=== PATIENT | female | born 1980 ===

== ENCOUNTER 2018-09-30 19:13 | Observation (INO) ==
[2018-09-30] MEDS ORDERED: ACETAMINOPHEN 325 MG TABLET PO PRN (22:15)
[2018-09-30] MEDS ORDERED: DEXTROSE 50% 25 GM/50 ML SYRINGE IV PRN (22:15)
[2018-09-30] MEDS ORDERED: GLUCAGON 1 MG VIAL IM PRN ×2 (22:15)
[2018-09-30] MEDS ORDERED: DEXTROSE 50% 25 GM/50 ML VIAL IV PRN (22:15)
[2018-09-30] MEDS: GABAPENTIN 100 MG CAPSULE PO SCH (22:44)
[2018-09-30] MEDS: SIMVASTATIN 20 MG TABLET PO SCH (22:44)
[2018-09-30] MEDS: cloNIDine 0.1 MG TABLET PO SCH (22:45)
[2018-09-30] MEDS: INSULIN REGULAR 100 UNIT/ML SUBCUT SCH (23:42)
[2018-10-01 06:57] LABS: Calcium 8.7 MG/DL (8.5-10.1); Osmolality,Calculated 305.4 MOS/KG (273-304)
[2018-10-01 06:59] LABS: Potassium 6.3 MMOL/L (3.5-5.1)
[2018-10-01] MEDS: LOSARTAN 50 MG TABLET PO SCH (09:14)
[2018-10-01] MEDS: amLODIPine 10 MG TABLET PO SCH (09:14)
[2018-10-01] MEDS: cloNIDine 0.1 MG TABLET PO SCH ×2 (09:14→22:33)
[2018-10-01] MEDS: PANTOPRAZOLE 40 MG TABLET PO SCH (09:15)
[2018-10-01] MEDS: INSULIN LISPRO 100 UNIT/ML SUBCUT SCH ×2 (09:16→17:52)
[2018-10-01] MEDS: INSULIN REGULAR 100 UNIT/ML SUBCUT SCH ×4 (09:17→22:34)
[2018-10-01 13:40] LABS: Hepatitis A Ab IgM Quant 0.15 Index; Hepatitis A Ab IgM Result Negative (Negative); Hepatitis B Core IgM Quant 0.06 Index; Hepatitis B Core IgM Result Negative (Negative); Hepatitis B Surface Ag Quant < 0.10 Index; Hepatitis B Surface Ag Result Negative (Negative); Hepatitis C Virus Ab Quant < 0.02 Index; Hepatitis C Virus Ab Result Negative (Negative)
[2018-10-01] MEDS: GABAPENTIN 100 MG CAPSULE PO SCH (22:32)
[2018-10-01] MEDS: SIMVASTATIN 20 MG TABLET PO SCH (22:33)
[2018-10-02 06:09] LABS: Basophils % 0.5 % (0.0-0.8); Eosinophils # 0.2 10*3/uL (0.0-0.87); Eosinophils % 1.9 % (0.00-10.9); Hematocrit 31.2 VOL% (35.7-47.0); Hemoglobin 9.3 GM/DL (12.0-16.0); Immature Granulocytes % 0.6 %; Immature Granulocytes Absolute 0.05 #; Lymphocytes # 3.1 10*3/uL (1.4-4.0); Lymphocytes % 39.3 % (21.3-54.2); Mean Corpuscular HGB Conc 29.8 GM/DL (32-36); Mean Corpuscular Hemoglobin 31 PG (27-34); Mean Corpuscular Volume 104.3 FL (87-102); Mean Platelet Volume 10.4 FL (9.6-12.0); Monocytes # 0.7 10*3/uL (0.11-0.8); NRBC # 0.03 10*3/uL; Neutrophils # 3.9 10*3/uL (1.4-7.4); Neutrophils % 48.7 % (38.7-73.9); Platelet Count 236 T/CUMM (130-400); Red Blood Count 2.99 MC/CUMM (3.8-5.5); Red Cell Distribution Width 17.2 % (9.3-17.3)
[2018-10-02 06:50] LABS: Calcium 8.3 MG/DL (8.5-10.1); Potassium 5.5 MMOL/L (3.5-5.1)
[2018-10-02] MEDS: INSULIN LISPRO 100 UNIT/ML SUBCUT SCH (08:50)
[2018-10-02] MEDS: PANTOPRAZOLE 40 MG TABLET PO SCH (08:51)
[2018-10-02] MEDS: amLODIPine 10 MG TABLET PO SCH (08:51)
[2018-10-02] MEDS: LOSARTAN 50 MG TABLET PO SCH (08:51)
[2018-10-02] MEDS: cloNIDine 0.1 MG TABLET PO SCH (08:51)
[2018-10-02] MEDS: INSULIN REGULAR 100 UNIT/ML SUBCUT SCH ×2 (11:27→13:32)
[2018-10-02 16:01] VITALS: BP 97/53
== END 2018-10-02 18:21 | disposition home or self-care (01) ==
LOC: N.TELEN → SUATTDRO 21:14
PROVIDERS: ADMIT Internal Medicine; ATTEND Hospitalist

== ENCOUNTER 2019-11-12 22:14 | Observation (INO) ==
[2019-11-13] MEDS ORDERED: amLODIPine 10 MG TABLET PO ONE (00:07)
[2019-11-13] MEDS ORDERED: LOSARTAN 50 MG TABLET PO ONE (00:08)
[2019-11-13] MEDS ORDERED: cloNIDine 0.1 MG TABLET PO ONE (00:08)
[2019-11-13] MEDS ORDERED: INFLUENZA VIRUS VACCINE 0.5 ML SYRINGE IM ONE (00:10)
[2019-11-13] MEDS: LOSARTAN 50 MG TABLET PO SCH ×3 (00:45→20:12)
[2019-11-13] MEDS: cloNIDine 0.1 MG TABLET PO SCH ×2 (00:46→08:34)
[2019-11-13] MEDS ORDERED: cloNIDine 0.1 MG TABLET PO PRN (01:28)
[2019-11-13] MEDS ORDERED: DOCUSATE SODIUM 100 MG CAPSULE PO PRN (01:29)
[2019-11-13] MEDS ORDERED: ACETAMINOPHEN 325 MG TABLET PO PRN (01:29)
[2019-11-13 02:05] LABS: Basophils % 0.3 % (0.0-0.8); Eosinophils # 0.1 10*3/uL (0.0-0.87); Eosinophils % 2.2 % (0.00-10.9); Hematocrit 22.8 VOL% (35.7-47.0); Hemoglobin 7.1 GM/DL (12.0-16.0); Immature Granulocytes % 1.2 %; Immature Granulocytes Absolute 0.07 #; Lymphocytes % 34.1 % (21.3-54.2); Mean Corpuscular HGB Conc 31.1 GM/DL (32-36); Mean Corpuscular Volume 101.3 FL (87-102); Mean Platelet Volume 9.7 FL (9.6-12.0); Monocytes % 7.2 % (1.7-12.7); NRBC # 0.03 10*3/uL; Platelet Count 151 T/CUMM (130-400); Red Blood Count 2.25 MC/CUMM (3.8-5.5); Red Cell Distribution Width 14.5 % (9.3-17.3)
[2019-11-13 02:29] LABS: Albumin 3.3 G/DL (3.4-5.0); Bilirubin,Total 0.6 MG/DL (0.2-1.0); Calcium 8.5 MG/DL (8.5-10.1); Osmolality,Calculated 281.2 MOS/KG (273-304); Total Protein 6.6 G/DL (6.4-8.3)
[2019-11-13 02:35] LABS: Thyroid Stimulating Hormone 4.01 uIU/ml (0.358-3.74)
[2019-11-13] MEDS: amLODIPine 10 MG TABLET PO SCH (08:34)
[2019-11-13] MEDS ORDERED: ALUM/MAG/SIMETH/LIDO VISC 1:1 30 ML BOTTLE PO ONE (10:11)
[2019-11-13] MEDS: hydrALAZINE 20 MG/1 ML VIAL IV PRN ×3 (10:21→20:15)
[2019-11-13] MEDS ORDERED: SODIUM CHLORIDE 0.9% 1,000 ML IV PRN (12:09)
[2019-11-13 12:33] LABS: Basophils % 0.6 % (0.0-0.8); Eosinophils # 0.2 10*3/uL (0.0-0.87); Eosinophils % 2.3 % (0.00-10.9); Hematocrit 24.7 VOL% (35.7-47.0); Hemoglobin 7.6 GM/DL (12.0-16.0); Immature Granulocytes % 0.8 %; Immature Granulocytes Absolute 0.05 #; Lymphocytes # 1.6 10*3/uL (1.4-4.0); Mean Corpuscular HGB Conc 30.8 GM/DL (32-36); Mean Corpuscular Volume 101.6 FL (87-102); Mean Platelet Volume 10.3 FL (9.6-12.0); NRBC # 0.04 10*3/uL; Neutrophils % 65.3 % (38.7-73.9); Platelet Count 159 T/CUMM (130-400); Red Blood Count 2.43 MC/CUMM (3.8-5.5); Red Cell Distribution Width 14.4 % (9.3-17.3); White Blood Count 6.5 T/CUMM (4-12)
[2019-11-13] MEDS ORDERED: HYDROmorphone 2 MG/1 ML VIAL IV PRN (17:14)
[2019-11-13] MEDS: ONDANSETRON 4 MG/2 ML VIAL IV PRN ×2 (17:33→21:51)
[2019-11-13] MEDS: SIMVASTATIN 20 MG TABLET PO SCH (20:13)
[2019-11-13] MEDS ORDERED: GABAPENTIN 100 MG CAPSULE PO SCH (21:00)
[2019-11-13] MEDS ORDERED: LABETALOL 20 MG/4 ML SYRINGE IV ONE (21:36)
[2019-11-14 05:26] LABS: Basophils % 0.5 % (0.0-0.8); Eosinophils # 0.1 10*3/uL (0.0-0.87); Hematocrit 33.6 VOL% (35.7-47.0); Hemoglobin 10.2 GM/DL (12.0-16.0); Immature Granulocytes % 1.2 %; Immature Granulocytes Absolute 0.07 #; Lymphocytes # 1.4 10*3/uL (1.4-4.0); Lymphocytes % 22.7 % (21.3-54.2); Mean Corpuscular HGB Conc 30.4 GM/DL (32-36); Mean Corpuscular Volume 99.1 FL (87-102); Mean Platelet Volume 9.6 FL (9.6-12.0); Monocytes % 7.7 % (1.7-12.7); NRBC # 0.07 10*3/uL; Neutrophils % 66.9 % (38.7-73.9); Platelet Count 162 T/CUMM (130-400); Red Blood Count 3.39 MC/CUMM (3.8-5.5); Red Cell Distribution Width 16.6 % (9.3-17.3)
[2019-11-14 05:38] LABS: Osmolality,Calculated 273.1 MOS/KG (273-304)
[2019-11-14] MEDS: amLODIPine 10 MG TABLET PO SCH (08:29)
[2019-11-14] MEDS: LOSARTAN 50 MG TABLET PO SCH ×2 (08:29→20:27)
[2019-11-14] MEDS: SIMVASTATIN 20 MG TABLET PO SCH (20:26)
[2019-11-14] MEDS ORDERED: GABAPENTIN 100 MG CAPSULE PO SCH (21:00)
[2019-11-15 06:24] LABS: Basophils % 0.6 % (0.0-0.8); Eosinophils # 0.2 10*3/uL (0.0-0.87); Eosinophils % 2.4 % (0.00-10.9); Hematocrit 33.9 VOL% (35.7-47.0); Hemoglobin 10.6 GM/DL (12.0-16.0); Immature Granulocytes % 1.3 %; Immature Granulocytes Absolute 0.08 #; Lymphocytes # 1.9 10*3/uL (1.4-4.0); Lymphocytes % 30.3 % (21.3-54.2); Mean Corpuscular HGB Conc 31.3 GM/DL (32-36); Mean Corpuscular Volume 97.7 FL (87-102); Mean Platelet Volume 10.4 FL (9.6-12.0); Monocytes % 6.8 % (1.7-12.7); NRBC # 0.08 10*3/uL; Neutrophils % 58.6 % (38.7-73.9); Platelet Count 158 T/CUMM (130-400); Red Blood Count 3.47 MC/CUMM (3.8-5.5); White Blood Count 6.2 T/CUMM (4-12)
[2019-11-15] MEDS: LOSARTAN 50 MG TABLET PO SCH (08:29)
[2019-11-15 10:08] VITALS: BP 174/76
== END 2019-11-15 10:50 | disposition home or self-care (01) ==
LOC: SUATTDRO 23:48 → INTOOBSV 23:48 → N.CC 23:48
PROVIDERS: ADMIT Internal Medicine; ATTEND Internal Medicine

== ENCOUNTER 2021-05-20 08:52 | Inpatient (IN) ==
[2021-05-20] MEDS ORDERED: GLUCAGON 1 MG VIAL IM PRN (15:36)
[2021-05-20] MEDS ORDERED: DEXTROSE 50% 25 GM/50 ML VIAL IV PRN (15:36)
[2021-05-20] MEDS: oxyCODONE/ACETAMINOPHEN 5-325 MG TABLET PO PRN (19:43)
[2021-05-20] MEDS: ATORVASTATIN 40 MG TABLET PO SCH (21:24)
[2021-05-20] MEDS: GABAPENTIN 100 MG CAPSULE PO SCH (21:24)
[2021-05-20] MEDS: METOPROLOL TARTRATE 50 MG TABLET PO SCH (21:25)
[2021-05-20] MEDS: CHLORHEXIDINE 0.12% ORAL RINSE 60 ML BOTTLE SWISH/SPIT SCH (21:30)
[2021-05-21 04:19] LABS: ABG Base Excess 4.2 MMOL/L (-2.5-2.5); ABG HCO3 27.9 MMOL/L (20-26); ABG Oxygen Saturation 80.2 % (95-100); ABG PCO2 50.9 MM HG (35-48); ABG PH 7.379 (7.35-7.45); ABG TCO2 28.2 MMOL/L (23-27); Pt O2 Delivery Device Room Air
[2021-05-21 06:04] LABS: Basophils % 0.4 % (0.0-0.8); Eosinophils # 0.2 10*3/uL (0.0-0.87); Eosinophils % 2.2 % (0.00-10.9); Hematocrit 27.6 VOL% (35.7-47.0); Hemoglobin 8.4 GM/DL (12.0-16.0); Immature Granulocytes % 3.6 %; Immature Granulocytes Absolute 0.24 #; Lymphocytes % 29.7 % (21.3-54.2); Mean Corpuscular HGB Conc 30.4 GM/DL (32-36); Mean Corpuscular Volume 102.6 FL (87-102); Mean Platelet Volume 9.9 FL (9.6-12.0); Monocytes % 5.3 % (1.7-12.7); NRBC # 0.05 10*3/uL; Neutrophils % 58.8 % (38.7-73.9); Platelet Count 253 T/CUMM (130-400); Red Blood Count 2.69 MC/CUMM (3.8-5.5); Red Cell Distribution Width 15.3 % (9.3-17.3); White Blood Count 6.7 T/CUMM (4-12)
[2021-05-21 06:39] LABS: Eosinophils 1 % (0-10); Hypochromasia 1+; Lymphocytes 21 % (20-55); Microcytosis 1+; Platelet Estimate Adequate; Segmented Neutrophils 72 % (50-85); Total Cells Counted 100
[2021-05-21 06:44] LABS: Albumin 2.8 G/DL (3.4-5.0); Bilirubin,Total 0.7 MG/DL (0.20-1.00); Calcium 8.8 MG/DL (8.5-10.1); Osmolality,Calculated 276.7 MOS/KG (273-304); Potassium 4.4 MMOL/L (3.5-5.1)
[2021-05-21] MEDS: guaiFENesin 200 MG/10 ML UDCUP PO PRN ×3 (09:01→20:59)
[2021-05-21] MEDS: ASPIRIN EC 81 MG TABLET PO SCH (09:02)
[2021-05-21] MEDS: LOSARTAN 50 MG TABLET PO SCH (09:02)
[2021-05-21] MEDS: METOPROLOL TARTRATE 50 MG TABLET PO SCH ×2 (09:02→20:58)
[2021-05-21] MEDS: amLODIPine 10 MG TABLET PO SCH (09:02)
[2021-05-21] MEDS: CHLORHEXIDINE 0.12% ORAL RINSE 60 ML BOTTLE SWISH/SPIT SCH ×2 (09:06→21:00)
[2021-05-21] MEDS: CHLORHEXIDINE 4% SOLN 118 ML BOTTLE TOP SCH ×2 (14:25→21:06)
[2021-05-21] MEDS: ATORVASTATIN 40 MG TABLET PO SCH (20:57)
[2021-05-21] MEDS: GABAPENTIN 100 MG CAPSULE PO SCH (20:58)
[2021-05-22] MEDS: guaiFENesin 200 MG/10 ML UDCUP PO PRN (00:01)
[2021-05-22] MEDS: oxyCODONE/ACETAMINOPHEN 5-325 MG TABLET PO PRN ×2 (01:45→17:01)
[2021-05-22] MEDS ORDERED: fentaNYL 100 MCG/2 ML VIAL ONE (05:58)
[2021-05-22] MEDS ORDERED: propofoL 200 MG/20 ML VIAL IV ONE (05:58)
[2021-05-22] MEDS ORDERED: LIDOCAINE 2% 5 ML VIAL ONE (05:58)
[2021-05-22] MEDS ORDERED: MIDAZOLAM 2 MG/2 ML VIAL ONE (05:59)
[2021-05-22] MEDS ORDERED: DIAZEPAM 5 MG TABLET PO ONE (06:05)
[2021-05-22] MEDS ORDERED: FAMOTIDINE 20 MG TABLET PO ONE (06:05)
[2021-05-22] MEDS ORDERED: SODIUM CHLORIDE 0.9% 1,000 ML IV ONE (06:11)
[2021-05-22] MEDS ORDERED: HEPARIN/NACL 0.9% 2 UNITS/ML 1,000 UNIT/500 ML BAG IV ONE (06:15)
[2021-05-22] MEDS ORDERED: VANCOMYCIN INJ 1,000 MG in SODIUM CHLORIDE 0.9% 250 ML IV ONE (06:30)
[2021-05-22] MEDS ORDERED: ePHEDrine 50 MG/ML VIAL ONE (07:24)
[2021-05-22] MEDS: CHLORHEXIDINE 4% SOLN 118 ML BOTTLE TOP SCH (08:00)
[2021-05-22] MEDS ORDERED: GLYCOPYRROLATE 0.4 MG/2 ML VIAL ONE (08:55)
[2021-05-22] MEDS ORDERED: EPINEPHrine 1 MG/ML VIAL ONE (08:55)
[2021-05-22] MEDS ORDERED: NEOSTIGMINE 10 MG/10 ML VIAL ONE (08:56)
[2021-05-22] MEDS ORDERED: SODIUM CHLORIDE 0.9% 250 ML IV ONE (08:56)
[2021-05-22] MEDS ORDERED: DEXAMETHASONE 4 MG/1 ML VIAL ONE (08:57)
[2021-05-22] MEDS ORDERED: ONDANSETRON 4 MG/2 ML VIAL ONE ×2 (08:57→09:38)
[2021-05-22] MEDS ORDERED: SEVOFLURANE 1 UNIT/15 MINUTE INH ONE (09:04)
[2021-05-22] MEDS ORDERED: HYDROmorphone 2 MG/1 ML VIAL ONE (09:38)
[2021-05-22] MEDS: HYDROmorphone 2 MG/1 ML VIAL IV PRN ×3 (09:38→10:01)
[2021-05-22] MEDS ORDERED: ONDANSETRON 4 MG/2 ML VIAL IV PRN (09:57)
[2021-05-22] MEDS ORDERED: LABETALOL 20 MG/4 ML SYRINGE IV ONE (09:58)
[2021-05-22] MEDS ORDERED: GLUCAGON 1 MG VIAL IM PRN (10:03)
[2021-05-22] MEDS ORDERED: DEXTROSE 50% 25 GM/50 ML VIAL IV PRN (10:03)
[2021-05-22] MEDS: SODIUM CHLORIDE 0.9% 1,000 ML IV SCH ×2 (10:45→17:19)
[2021-05-22] MEDS: MORPHINE 2 MG/1 ML SYRINGE IV PRN ×2 (11:43→21:11)
[2021-05-22] MEDS ORDERED: ROCURONIUM 50 MG/5 ML VIAL IV ONE (11:51)
[2021-05-22] MEDS: LOSARTAN 50 MG TABLET PO SCH (12:33)
[2021-05-22] MEDS: ASPIRIN EC 81 MG TABLET PO SCH (12:33)
[2021-05-22] MEDS: METOPROLOL TARTRATE 50 MG TABLET PO SCH ×2 (12:34→21:11)
[2021-05-22] MEDS: amLODIPine 10 MG TABLET PO SCH (12:34)
[2021-05-22] MEDS: CHLORHEXIDINE 0.12% ORAL RINSE 60 ML BOTTLE SWISH/SPIT SCH (12:34)
[2021-05-22] MEDS: ATORVASTATIN 40 MG TABLET PO SCH (21:10)
[2021-05-22] MEDS: GABAPENTIN 100 MG CAPSULE PO SCH (21:11)
[2021-05-23] MEDS: oxyCODONE/ACETAMINOPHEN 5-325 MG TABLET PO PRN ×2 (01:41→12:11)
[2021-05-23] MEDS: CHLORHEXIDINE 0.12% ORAL RINSE 60 ML BOTTLE SWISH/SPIT SCH ×3 (01:46→21:22)
[2021-05-23 05:33] LABS: Basophils % 0.2 % (0.0-0.8); Immature Granulocytes % 4.6 %; Immature Granulocytes Absolute 0.54 #; Lymphocytes # 2.1 10*3/uL (1.4-4.0); Lymphocytes % 17.9 % (21.3-54.2); Mean Corpuscular HGB Conc 29.4 GM/DL (32-36); Mean Corpuscular Volume 105.8 FL (87-102); Mean Platelet Volume 10.2 FL (9.6-12.0); NRBC # 0.52 10*3/uL; Neutrophils % 70.3 % (38.7-73.9); Platelet Count 213 T/CUMM (130-400)
[2021-05-23 05:51] LABS: Red Blood Count 1.54 MC/CUMM (3.8-5.5); White Blood Count 11.8 T/CUMM (4-12)
[2021-05-23 05:52] LABS: Hematocrit 16.3 VOL% (35.7-47.0); Hemoglobin 4.8 GM/DL (12.0-16.0)
[2021-05-23 05:58] LABS: Albumin 2.2 G/DL (3.4-5.0); Bilirubin,Total 0.8 MG/DL (0.20-1.00); Calcium 7.8 MG/DL (8.5-10.1); Hypochromasia 1+; Lymphocytes 19 % (20-55); Nucleated Red Blood Cells 1 (0-5); Platelet Estimate Adequate; Segmented Neutrophils 78 % (50-85); Total Cells Counted 100; Total Protein 5.5 G/DL (6.4-8.2)
[2021-05-23 05:59] LABS: Microcytosis 1+
[2021-05-23 06:00] LABS: Potassium 6.7 MMOL/L (3.5-5.1)
[2021-05-23] MEDS ORDERED: SODIUM CHLORIDE 0.9% 1,000 ML IV PRN (06:34)
[2021-05-23] MEDS: MORPHINE 2 MG/1 ML SYRINGE IV PRN (07:20)
[2021-05-23] MEDS: ASPIRIN EC 81 MG TABLET PO SCH (10:01)
[2021-05-23] MEDS: LOSARTAN 50 MG TABLET PO SCH (11:46)
[2021-05-23 15:54] LABS: Basophils # 0.1 10*3/uL (0.0-0.2); Basophils % 0.6 % (0.0-0.8); Eosinophils # 0.1 10*3/uL (0.0-0.87); Eosinophils % 0.6 % (0.00-10.9); Hematocrit 29.1 VOL% (35.7-47.0); Hemoglobin 9.1 GM/DL (12.0-16.0); Immature Granulocytes % 2.8 %; Immature Granulocytes Absolute 0.23 #; Lymphocytes # 1.4 10*3/uL (1.4-4.0); Lymphocytes % 17.1 % (21.3-54.2); Mean Corpuscular HGB Conc 31.3 GM/DL (32-36); Mean Corpuscular Volume 99.7 FL (87-102); Mean Platelet Volume 10.4 FL (9.6-12.0); Monocytes % 6.7 % (1.7-12.7); NRBC # 0.62 10*3/uL; Neutrophils % 72.2 % (38.7-73.9); Platelet Count 188 T/CUMM (130-400); Red Blood Count 2.92 MC/CUMM (3.8-5.5); Red Cell Distribution Width 15.9 % (9.3-17.3); White Blood Count 8.2 T/CUMM (4-12)
[2021-05-23 16:36] LABS: Albumin 2.5 G/DL (3.4-5.0); Bilirubin,Total 1.4 MG/DL (0.20-1.00); Calcium 8.9 MG/DL (8.5-10.1); Potassium 3.8 MMOL/L (3.5-5.1); Total Protein 5.7 G/DL (6.4-8.2)
[2021-05-23] MEDS: VANCOMYCIN INJ 1,000 MG in SODIUM CHLORIDE 0.9% 250 ML IV SCH (19:05)
[2021-05-23] MEDS: GABAPENTIN 100 MG CAPSULE PO SCH (21:22)
[2021-05-24 04:30] LABS: Basophils # 0.1 10*3/uL (0.0-0.2); Basophils % 0.9 % (0.0-0.8); Eosinophils # 0.1 10*3/uL (0.0-0.87); Eosinophils % 0.8 % (0.00-10.9); Hemoglobin 9.6 GM/DL (12.0-16.0); Immature Granulocytes % 3.1 %; Immature Granulocytes Absolute 0.31 #; Lymphocytes # 1.9 10*3/uL (1.4-4.0); Lymphocytes % 19.1 % (21.3-54.2); Mean Corpuscular Volume 102.6 FL (87-102); Mean Platelet Volume 10.3 FL (9.6-12.0); Monocytes % 6.1 % (1.7-12.7); NRBC # 0.66 10*3/uL; Platelet Count 164 T/CUMM (130-400); Red Blood Count 3.02 MC/CUMM (3.8-5.5); Red Cell Distribution Width 17.4 % (9.3-17.3); White Blood Count 9.9 T/CUMM (4-12)
[2021-05-24 05:26] LABS: Albumin 2.2 G/DL (3.4-5.0); Bilirubin,Total 0.7 MG/DL (0.20-1.00); Calcium 9.4 MG/DL (8.5-10.1); Osmolality,Calculated 266.7 MOS/KG (273-304); Potassium 4.9 MMOL/L (3.5-5.1); Total Protein 5.9 G/DL (6.4-8.2)
[2021-05-24] MEDS: oxyCODONE/ACETAMINOPHEN 5-325 MG TABLET PO PRN (06:06)
[2021-05-24] MEDS ORDERED: SIMETHICONE CHEW 80 MG TABLET PO PRN (08:57)
[2021-05-24] MEDS ORDERED: SIMETHICONE CHEW 80 MG TABLET PO ONE (08:59)
[2021-05-24] MEDS ORDERED: amLODIPine 10 MG TABLET PO SCH (09:00)
[2021-05-24] MEDS: DOCUSATE SODIUM 100 MG CAPSULE PO SCH ×2 (09:55→20:13)
[2021-05-24] MEDS: METOPROLOL TARTRATE 25 MG TABLET PO SCH ×2 (09:56→20:13)
[2021-05-24] MEDS: POLYETHYLENE GLYCOL POWDER 17 GM PACK PO SCH (09:56)
[2021-05-24] MEDS: LOSARTAN 50 MG TABLET PO SCH (09:56)
[2021-05-24] MEDS: ASPIRIN EC 81 MG TABLET PO SCH (09:56)
[2021-05-24] MEDS: amLODIPine 10 MG TABLET PO SCH (09:56)
[2021-05-24] MEDS: CHLORHEXIDINE 0.12% ORAL RINSE 60 ML BOTTLE SWISH/SPIT SCH ×2 (09:57→20:13)
[2021-05-24] MEDS: GABAPENTIN 100 MG CAPSULE PO SCH (20:13)
[2021-05-25] MEDS: oxyCODONE/ACETAMINOPHEN 5-325 MG TABLET PO PRN ×3 (05:58→20:52)
[2021-05-25 06:34] LABS: Basophils # 0.1 10*3/uL (0.0-0.2); Basophils % 0.6 % (0.0-0.8); Eosinophils # 0.1 10*3/uL (0.0-0.87); Eosinophils % 1.3 % (0.00-10.9); Hematocrit 26.2 VOL% (35.7-47.0); Hemoglobin 8.3 GM/DL (12.0-16.0); Immature Granulocytes % 3.1 %; Immature Granulocytes Absolute 0.24 #; Lymphocytes # 1.7 10*3/uL (1.4-4.0); Lymphocytes % 21.5 % (21.3-54.2); Mean Corpuscular HGB Conc 31.7 GM/DL (32-36); Mean Corpuscular Volume 98.9 FL (87-102); Mean Platelet Volume 9.7 FL (9.6-12.0); Monocytes % 4.4 % (1.7-12.7); NRBC # 0.26 10*3/uL; Neutrophils % 69.1 % (38.7-73.9); Platelet Count 182 T/CUMM (130-400); Red Blood Count 2.65 MC/CUMM (3.8-5.5); Red Cell Distribution Width 17.1 % (9.3-17.3); White Blood Count 7.7 T/CUMM (4-12)
[2021-05-25 06:46] LABS: Albumin 2.1 G/DL (3.4-5.0); Bilirubin,Total 0.7 MG/DL (0.20-1.00); Calcium 8.7 MG/DL (8.5-10.1); Osmolality,Calculated 271.7 MOS/KG (273-304); Potassium 4.1 MMOL/L (3.5-5.1); Total Protein 5.7 G/DL (6.4-8.2)
[2021-05-25 07:03] LABS: Band Neutrophils 2 % (0-10); Eosinophils 3 % (0-10); Hypochromasia 1+; Lymphocytes 23 % (20-55); Microcytosis 1+; Nucleated Red Blood Cells 1 (0-5); Segmented Neutrophils 68 % (50-85); Total Cells Counted 100
[2021-05-25 07:04] LABS: Platelet Estimate Adequate; Polychromasia Slight
[2021-05-25] MEDS: DOCUSATE SODIUM 100 MG CAPSULE PO SCH ×2 (08:38→20:52)
[2021-05-25] MEDS: ASPIRIN EC 81 MG TABLET PO SCH (08:38)
[2021-05-25] MEDS: guaiFENesin 200 MG/10 ML UDCUP PO PRN ×4 (08:39→22:09)
[2021-05-25] MEDS: CHLORHEXIDINE 0.12% ORAL RINSE 60 ML BOTTLE SWISH/SPIT SCH ×2 (08:41→20:53)
[2021-05-25] MEDS: POLYETHYLENE GLYCOL POWDER 17 GM PACK PO SCH (08:41)
[2021-05-25] MEDS: METOPROLOL TARTRATE 25 MG TABLET PO SCH ×2 (14:22→20:52)
[2021-05-25] MEDS: amLODIPine 10 MG TABLET PO SCH (15:43)
[2021-05-25] MEDS: LOSARTAN 50 MG TABLET PO SCH (15:43)
[2021-05-25] MEDS: VANCOMYCIN INJ 1,000 MG in SODIUM CHLORIDE 0.9% 250 ML IV SCH (18:01)
[2021-05-25] MEDS: GABAPENTIN 100 MG CAPSULE PO SCH (20:52)
[2021-05-26 05:22] LABS: Basophils % 0.5 % (0.0-0.8); Eosinophils # 0.3 10*3/uL (0.0-0.87); Eosinophils % 4.3 % (0.00-10.9); Hematocrit 26.6 VOL% (35.7-47.0); Hemoglobin 8.2 GM/DL (12.0-16.0); Immature Granulocytes % 4.8 %; Immature Granulocytes Absolute 0.28 #; Lymphocytes # 1.2 10*3/uL (1.4-4.0); Mean Corpuscular HGB Conc 30.8 GM/DL (32-36); Mean Corpuscular Volume 99.3 FL (87-102); Mean Platelet Volume 10.3 FL (9.6-12.0); Monocytes % 7.2 % (1.7-12.7); NRBC # 0.24 10*3/uL; Neutrophils % 62.2 % (38.7-73.9); Platelet Count 185 T/CUMM (130-400); Red Blood Count 2.68 MC/CUMM (3.8-5.5); White Blood Count 5.9 T/CUMM (4-12)
[2021-05-26 05:55] LABS: Albumin 2.3 G/DL (3.4-5.0); Bilirubin,Total 0.9 MG/DL (0.20-1.00); Calcium 8.9 MG/DL (8.5-10.1); Osmolality,Calculated 279.8 MOS/KG (273-304); Potassium 3.6 MMOL/L (3.5-5.1); Total Protein 6.2 G/DL (6.4-8.2)
[2021-05-26] MEDS: guaiFENesin 200 MG/10 ML UDCUP PO PRN ×2 (06:22→12:22)
[2021-05-26] MEDS: oxyCODONE/ACETAMINOPHEN 5-325 MG TABLET PO PRN ×2 (06:22→12:23)
[2021-05-26] MEDS: POLYETHYLENE GLYCOL POWDER 17 GM PACK PO SCH (08:54)
[2021-05-26] MEDS: LOSARTAN 50 MG TABLET PO SCH (08:54)
[2021-05-26] MEDS: METOPROLOL TARTRATE 25 MG TABLET PO SCH ×2 (08:54→21:02)
[2021-05-26] MEDS: DOCUSATE SODIUM 100 MG CAPSULE PO SCH ×2 (08:54→21:02)
[2021-05-26] MEDS: amLODIPine 10 MG TABLET PO SCH (08:54)
[2021-05-26] MEDS: ASPIRIN EC 81 MG TABLET PO SCH (08:54)
[2021-05-26] MEDS: CHLORHEXIDINE 0.12% ORAL RINSE 60 ML BOTTLE SWISH/SPIT SCH ×2 (09:00→21:05)
[2021-05-26] MEDS ORDERED: ALBUTEROL 2.5 MG/3 ML NEB RESP TX PRN (18:50)
[2021-05-26] MEDS ORDERED: ALBUTEROL 2.5 MG/3 ML NEB RESP TX SCH (19:00)
[2021-05-26] MEDS: GABAPENTIN 100 MG CAPSULE PO SCH (21:02)
[2021-05-27] MEDS: oxyCODONE/ACETAMINOPHEN 5-325 MG TABLET PO PRN ×4 (02:43→23:54)
[2021-05-27] MEDS: guaiFENesin 200 MG/10 ML UDCUP PO PRN ×4 (02:43→23:55)
[2021-05-27 04:36] LABS: Basophils % 0.5 % (0.0-0.8); Eosinophils # 0.3 10*3/uL (0.0-0.87); Eosinophils % 5.9 % (0.00-10.9); Hematocrit 22.6 VOL% (35.7-47.0); Immature Granulocytes % 3.1 %; Immature Granulocytes Absolute 0.18 #; Lymphocytes # 1.4 10*3/uL (1.4-4.0); Lymphocytes % 24.4 % (21.3-54.2); Mean Platelet Volume 10.4 FL (9.6-12.0); Monocytes % 8.6 % (1.7-12.7); NRBC # 0.09 10*3/uL; Neutrophils % 57.5 % (38.7-73.9); Red Blood Count 2.26 MC/CUMM (3.8-5.5); Red Cell Distribution Width 17.1 % (9.3-17.3); White Blood Count 5.7 T/CUMM (4-12)
[2021-05-27 04:43] LABS: Platelet Count 146 T/CUMM (130-400)
[2021-05-27 05:13] LABS: Calcium 8.4 MG/DL (8.5-10.1); Osmolality,Calculated 271.7 MOS/KG (273-304); Potassium 3.7 MMOL/L (3.5-5.1)
[2021-05-27 07:34] LABS: Anisocytosis 2+; Burr Cells Few; Eosinophils 7 % (0-10); Lymphocytes 28 % (20-55); Macrocytosis 1+; Nucleated Red Blood Cells 4 (0-5); Ovalocytes Few; Platelet Estimate Adequate; Polychromasia Slight; Segmented Neutrophils 60 % (50-85); Total Cells Counted 100
[2021-05-27] MEDS: CHLORHEXIDINE 0.12% ORAL RINSE 60 ML BOTTLE SWISH/SPIT SCH ×2 (08:22→21:20)
[2021-05-27] MEDS: METOPROLOL TARTRATE 25 MG TABLET PO SCH ×2 (08:24→21:20)
[2021-05-27] MEDS: amLODIPine 10 MG TABLET PO SCH (08:24)
[2021-05-27] MEDS: LOSARTAN 50 MG TABLET PO SCH (08:24)
[2021-05-27] MEDS: DOCUSATE SODIUM 100 MG CAPSULE PO SCH ×2 (08:24→21:20)
[2021-05-27] MEDS: POLYETHYLENE GLYCOL POWDER 17 GM PACK PO SCH (08:24)
[2021-05-27] MEDS: ASPIRIN EC 81 MG TABLET PO SCH (08:24)
[2021-05-27] MEDS ORDERED: EPOETIN ALFA-EPBX 2,000 UNIT/ML VIAL IV PRN (15:30)
[2021-05-27] MEDS: GABAPENTIN 100 MG CAPSULE PO SCH (21:20)
[2021-05-28 05:08] LABS: Basophils % 0.4 % (0.0-0.8); Eosinophils # 0.3 10*3/uL (0.0-0.87); Eosinophils % 5.4 % (0.00-10.9); Hematocrit 25.5 VOL% (35.7-47.0); Hemoglobin 7.7 GM/DL (12.0-16.0); Immature Granulocytes Absolute 0.16 #; Lymphocytes # 1.4 10*3/uL (1.4-4.0); Lymphocytes % 26.5 % (21.3-54.2); Mean Corpuscular HGB Conc 30.2 GM/DL (32-36); Mean Corpuscular Volume 102.4 FL (87-102); Mean Platelet Volume 10.2 FL (9.6-12.0); Monocytes % 9.8 % (1.7-12.7); NRBC # 0.03 10*3/uL; Neutrophils % 54.9 % (38.7-73.9); Platelet Count 145 T/CUMM (130-400); Red Blood Count 2.49 MC/CUMM (3.8-5.5); Red Cell Distribution Width 18.1 % (9.3-17.3); White Blood Count 5.4 T/CUMM (4-12)
[2021-05-28 05:36] LABS: Albumin 2.3 G/DL (3.4-5.0); Calcium 8.6 MG/DL (8.5-10.1); Osmolality,Calculated 270.2 MOS/KG (273-304); Total Protein 6.2 G/DL (6.4-8.2)
[2021-05-28] MEDS: oxyCODONE/ACETAMINOPHEN 5-325 MG TABLET PO PRN ×3 (06:14→23:14)
[2021-05-28] MEDS: guaiFENesin 200 MG/10 ML UDCUP PO PRN ×2 (06:23→23:14)
[2021-05-28 07:09] LABS: Anisocytosis 3+; Band Neutrophils 6 % (0-10); Eosinophils 7 % (0-10); Lymphocytes 26 % (20-55); Macrocytosis 1+; Metamyelocytes 1 %; Nucleated Red Blood Cells 1 (0-5); Ovalocytes Few; Platelet Estimate Adequate; Segmented Neutrophils 52 % (50-85); Total Cells Counted 100
[2021-05-28 07:10] LABS: Basophilic Stippling Slight; Polychromasia Slight; Tear Drop Cells Few
[2021-05-28] MEDS: POLYETHYLENE GLYCOL POWDER 17 GM PACK PO SCH (09:09)
[2021-05-28] MEDS: METOPROLOL TARTRATE 25 MG TABLET PO SCH ×2 (09:12→20:36)
[2021-05-28] MEDS: ASPIRIN EC 81 MG TABLET PO SCH (09:12)
[2021-05-28] MEDS: DOCUSATE SODIUM 100 MG CAPSULE PO SCH ×2 (09:12→20:36)
[2021-05-28] MEDS: amLODIPine 10 MG TABLET PO SCH (09:12)
[2021-05-28] MEDS: LOSARTAN 50 MG TABLET PO SCH (09:13)
[2021-05-28] MEDS: CHLORHEXIDINE 0.12% ORAL RINSE 60 ML BOTTLE SWISH/SPIT SCH ×2 (12:01→20:38)
[2021-05-28] MEDS: GABAPENTIN 100 MG CAPSULE PO SCH (20:36)
[2021-05-29 05:35] LABS: Basophils % 0.4 % (0.0-0.8); Eosinophils # 0.3 10*3/uL (0.0-0.87); Eosinophils % 5.8 % (0.00-10.9); Hematocrit 24.3 VOL% (35.7-47.0); Hemoglobin 7.4 GM/DL (12.0-16.0); Immature Granulocytes % 2.1 %; Immature Granulocytes Absolute 0.11 #; Lymphocytes # 1.4 10*3/uL (1.4-4.0); Lymphocytes % 26.5 % (21.3-54.2); Mean Corpuscular HGB Conc 30.5 GM/DL (32-36); Mean Corpuscular Volume 102.5 FL (87-102); Mean Platelet Volume 10.5 FL (9.6-12.0); Monocytes % 8.8 % (1.7-12.7); NRBC # 0.03 10*3/uL; Neutrophils % 56.4 % (38.7-73.9); Platelet Count 135 T/CUMM (130-400); Red Blood Count 2.37 MC/CUMM (3.8-5.5); Red Cell Distribution Width 18.1 % (9.3-17.3); White Blood Count 5.4 T/CUMM (4-12)
[2021-05-29 06:01] LABS: Hypochromasia 1+; Microcytosis 1+; Platelet Estimate Normal
[2021-05-29 06:11] LABS: Calcium 8.5 MG/DL (8.5-10.1); Osmolality,Calculated 270.7 MOS/KG (273-304); Potassium 4.1 MMOL/L (3.5-5.1)
[2021-05-29] MEDS: oxyCODONE/ACETAMINOPHEN 5-325 MG TABLET PO PRN ×4 (06:24→21:23)
[2021-05-29] MEDS: guaiFENesin 200 MG/10 ML UDCUP PO PRN ×2 (06:50→21:24)
[2021-05-29] MEDS: METOPROLOL TARTRATE 25 MG TABLET PO SCH ×2 (09:31→21:24)
[2021-05-29] MEDS: LOSARTAN 50 MG TABLET PO SCH (09:31)
[2021-05-29] MEDS: DOCUSATE SODIUM 100 MG CAPSULE PO SCH ×2 (09:31→21:24)
[2021-05-29] MEDS: CHLORHEXIDINE 0.12% ORAL RINSE 60 ML BOTTLE SWISH/SPIT SCH ×2 (09:32→21:23)
[2021-05-29] MEDS: ASPIRIN EC 81 MG TABLET PO SCH (09:32)
[2021-05-29] MEDS: amLODIPine 10 MG TABLET PO SCH (09:32)
[2021-05-29] MEDS: POLYETHYLENE GLYCOL POWDER 17 GM PACK PO SCH (09:34)
[2021-05-29] MEDS: GABAPENTIN 100 MG CAPSULE PO SCH (21:24)
[2021-05-30] MEDS: guaiFENesin 200 MG/10 ML UDCUP PO PRN ×2 (03:35→21:13)
[2021-05-30] MEDS: oxyCODONE/ACETAMINOPHEN 5-325 MG TABLET PO PRN ×4 (03:38→22:09)
[2021-05-30 05:13] LABS: PT Patient Result 10.8 SECS (10.5-12.0)
[2021-05-30 05:49] LABS: Albumin 2.3 G/DL (3.4-5.0); Bilirubin,Total 1.9 MG/DL (0.20-1.00); Osmolality,Calculated 273.7 MOS/KG (273-304); Potassium 4.4 MMOL/L (3.5-5.1); Total Protein 6.3 G/DL (6.4-8.2)
[2021-05-30 06:12] LABS: Basophils % 0.5 % (0.0-0.8); Eosinophils # 0.3 10*3/uL (0.0-0.87); Eosinophils % 4.3 % (0.00-10.9); Hematocrit 24.1 VOL% (35.7-47.0); Hemoglobin 7.3 GM/DL (12.0-16.0); Immature Granulocytes % 1.5 %; Lymphocytes # 1.5 10*3/uL (1.4-4.0); Lymphocytes % 23.2 % (21.3-54.2); Mean Corpuscular HGB Conc 30.3 GM/DL (32-36); Mean Corpuscular Volume 101.7 FL (87-102); Mean Platelet Volume 10.6 FL (9.6-12.0); Monocytes % 8.8 % (1.7-12.7); Neutrophils % 61.7 % (38.7-73.9); Platelet Count 138 T/CUMM (130-400); Red Blood Count 2.37 MC/CUMM (3.8-5.5); Red Cell Distribution Width 18.1 % (9.3-17.3); White Blood Count 6.5 T/CUMM (4-12)
[2021-05-30] MEDS ORDERED: VANCOMYCIN INJ 1,000 MG in SODIUM CHLORIDE 0.9% 250 ML IV ONE (09:00)
[2021-05-30] MEDS ORDERED: MIDAZOLAM 10 MG/2 ML VIAL IV ONE (09:00)
[2021-05-30] MEDS ORDERED: SODIUM CHLORIDE 0.45% 1,000 ML IV SCH (09:00)
[2021-05-30] MEDS ORDERED: fentaNYL 100 MCG/2 ML VIAL IV ONE (09:00)
[2021-05-30] MEDS: ASPIRIN EC 81 MG TABLET PO SCH (09:16)
[2021-05-30] MEDS: METOPROLOL TARTRATE 25 MG TABLET PO SCH ×2 (09:17→21:12)
[2021-05-30] MEDS: LOSARTAN 50 MG TABLET PO SCH (09:17)
[2021-05-30] MEDS: DOCUSATE SODIUM 100 MG CAPSULE PO SCH ×2 (09:17→21:12)
[2021-05-30] MEDS: amLODIPine 10 MG TABLET PO SCH (09:18)
[2021-05-30] MEDS: CHLORHEXIDINE 0.12% ORAL RINSE 60 ML BOTTLE SWISH/SPIT SCH ×2 (09:18→21:13)
[2021-05-30] MEDS: POLYETHYLENE GLYCOL POWDER 17 GM PACK PO SCH (13:27)
[2021-05-30] MEDS: GABAPENTIN 100 MG CAPSULE PO SCH (21:12)
[2021-05-31] MEDS: IBUPROFEN 600 MG TABLET PO PRN ×2 (00:24→08:36)
[2021-05-31] MEDS: guaiFENesin 200 MG/10 ML UDCUP PO PRN ×2 (03:25→20:23)
[2021-05-31] MEDS: oxyCODONE/ACETAMINOPHEN 5-325 MG TABLET PO PRN ×3 (03:25→20:20)
[2021-05-31 05:26] LABS: Basophils % 0.6 % (0.0-0.8); Eosinophils # 0.2 10*3/uL (0.0-0.87); Eosinophils % 4.2 % (0.00-10.9); Hematocrit 23.6 VOL% (35.7-47.0); Hemoglobin 7.1 GM/DL (12.0-16.0); Immature Granulocytes Absolute 0.05 #; Lymphocytes # 1.2 10*3/uL (1.4-4.0); Lymphocytes % 24.3 % (21.3-54.2); Mean Corpuscular HGB Conc 30.1 GM/DL (32-36); Mean Corpuscular Volume 103.5 FL (87-102); Mean Platelet Volume 10.9 FL (9.6-12.0); Monocytes % 11.1 % (1.7-12.7); Neutrophils % 58.8 % (38.7-73.9); Platelet Count 132 T/CUMM (130-400); Red Blood Count 2.28 MC/CUMM (3.8-5.5); Red Cell Distribution Width 18.2 % (9.3-17.3)
[2021-05-31 05:47] LABS: Calcium 8.7 MG/DL (8.5-10.1); Osmolality,Calculated 273.2 MOS/KG (273-304); Potassium 4.5 MMOL/L (3.5-5.1)
[2021-05-31 05:57] LABS: Hypochromasia 1+; Microcytosis 1+; Platelet Estimate Normal
[2021-05-31] MEDS: METOPROLOL TARTRATE 25 MG TABLET PO SCH ×2 (08:36→20:20)
[2021-05-31] MEDS: amLODIPine 10 MG TABLET PO SCH (08:36)
[2021-05-31] MEDS: LOSARTAN 50 MG TABLET PO SCH (08:36)
[2021-05-31] MEDS: DOCUSATE SODIUM 100 MG CAPSULE PO SCH ×2 (08:42→20:19)
[2021-05-31] MEDS: ASPIRIN EC 81 MG TABLET PO SCH (08:42)
[2021-05-31] MEDS: CHLORHEXIDINE 0.12% ORAL RINSE 60 ML BOTTLE SWISH/SPIT SCH ×2 (08:43→20:23)
[2021-05-31] MEDS: POLYETHYLENE GLYCOL POWDER 17 GM PACK PO SCH (08:43)
[2021-05-31] MEDS ORDERED: VANCOMYCIN INJ 1,000 MG in SODIUM CHLORIDE 0.9% 250 ML IV ONE (09:00)
[2021-05-31] MEDS ORDERED: MIDAZOLAM 2 MG/2 ML VIAL IV ONE (09:00)
[2021-05-31] MEDS ORDERED: SODIUM CHLORIDE 0.45% 1,000 ML IV SCH (09:00)
[2021-05-31] MEDS ORDERED: fentaNYL 100 MCG/2 ML VIAL IV ONE (09:00)
[2021-05-31] MEDS ORDERED: HEPARIN 5,000 UNIT/1 ML VIAL ONE (09:24)
[2021-05-31] MEDS ORDERED: HEPARIN 5,000 UNIT/1 ML VIAL IV ONE (10:53)
[2021-05-31] MEDS ORDERED: NITROGLYCERIN DRIP 50 MG/250 ML BOTTLE IV ONE (11:14)
[2021-05-31] MEDS: GABAPENTIN 100 MG CAPSULE PO SCH (20:19)
[2021-06-01] MEDS: guaiFENesin 200 MG/10 ML UDCUP PO PRN ×2 (02:37→20:31)
[2021-06-01] MEDS: oxyCODONE/ACETAMINOPHEN 5-325 MG TABLET PO PRN ×3 (02:37→13:47)
[2021-06-01 06:01] LABS: Basophils % 0.4 % (0.0-0.8); Eosinophils # 0.2 10*3/uL (0.0-0.87); Eosinophils % 3.9 % (0.00-10.9); Hematocrit 22.8 VOL% (35.7-47.0); Hemoglobin 6.9 GM/DL (12.0-16.0); Immature Granulocytes % 1.3 %; Immature Granulocytes Absolute 0.06 #; Lymphocytes % 21.5 % (21.3-54.2); Mean Corpuscular HGB Conc 30.3 GM/DL (32-36); Mean Corpuscular Volume 104.1 FL (87-102); Mean Platelet Volume 11.4 FL (9.6-12.0); Monocytes % 10.5 % (1.7-12.7); Neutrophils % 62.4 % (38.7-73.9); Platelet Count 136 T/CUMM (130-400); Red Blood Count 2.19 MC/CUMM (3.8-5.5); Red Cell Distribution Width 17.6 % (9.3-17.3); White Blood Count 4.7 T/CUMM (4-12)
[2021-06-01 06:47] LABS: Calcium 8.2 MG/DL (8.5-10.1); Osmolality,Calculated 278.2 MOS/KG (273-304); Potassium 4.6 MMOL/L (3.5-5.1)
[2021-06-01] MEDS ORDERED: CLOPIDOGREL 75 MG TABLET PO ONE (11:37)
[2021-06-01] MEDS: ASPIRIN EC 81 MG TABLET PO SCH (13:47)
[2021-06-01] MEDS: LOSARTAN 50 MG TABLET PO SCH (13:47)
[2021-06-01] MEDS: amLODIPine 10 MG TABLET PO SCH (13:47)
[2021-06-01] MEDS: METOPROLOL TARTRATE 25 MG TABLET PO SCH ×2 (13:48→20:32)
[2021-06-01] MEDS: POLYETHYLENE GLYCOL POWDER 17 GM PACK PO SCH (13:48)
[2021-06-01] MEDS: CHLORHEXIDINE 0.12% ORAL RINSE 60 ML BOTTLE SWISH/SPIT SCH ×2 (13:48→20:32)
[2021-06-01] MEDS: DOCUSATE SODIUM 100 MG CAPSULE PO SCH ×2 (13:48→20:32)
[2021-06-01] MEDS: GABAPENTIN 100 MG CAPSULE PO SCH (20:32)
[2021-06-02] MEDS: oxyCODONE/ACETAMINOPHEN 5-325 MG TABLET PO PRN ×4 (00:38→23:11)
[2021-06-02] MEDS: IBUPROFEN 600 MG TABLET PO PRN ×2 (03:52→21:05)
[2021-06-02 04:58] LABS: Basophils % 0.4 % (0.0-0.8); Eosinophils # 0.2 10*3/uL (0.0-0.87); Eosinophils % 4.5 % (0.00-10.9); Hematocrit 20.9 VOL% (35.7-47.0); Immature Granulocytes % 1.2 %; Immature Granulocytes Absolute 0.06 #; Lymphocytes # 1.3 10*3/uL (1.4-4.0); Lymphocytes % 27.2 % (21.3-54.2); Mean Corpuscular HGB Conc 30.1 GM/DL (32-36); Mean Corpuscular Volume 103.5 FL (87-102); Mean Platelet Volume 10.8 FL (9.6-12.0); Monocytes % 11.7 % (1.7-12.7); Platelet Count 172 T/CUMM (130-400); Red Blood Count 2.02 MC/CUMM (3.8-5.5); Red Cell Distribution Width 17.7 % (9.3-17.3); White Blood Count 4.9 T/CUMM (4-12)
[2021-06-02 05:18] LABS: Albumin 2.2 G/DL (3.4-5.0); Bilirubin,Total 0.8 MG/DL (0.20-1.00); Calcium 9.5 MG/DL (8.5-10.1); Osmolality,Calculated 274.1 MOS/KG (273-304); Potassium 4.2 MMOL/L (3.5-5.1); Total Protein 6.1 G/DL (6.4-8.2)
[2021-06-02 05:26] LABS: Hemoglobin 6.3 GM/DL (12.0-16.0)
[2021-06-02] MEDS: POLYETHYLENE GLYCOL POWDER 17 GM PACK PO SCH (10:48)
[2021-06-02] MEDS: CLOPIDOGREL 75 MG TABLET PO SCH (10:50)
[2021-06-02] MEDS: METOPROLOL TARTRATE 25 MG TABLET PO SCH ×2 (10:50→21:05)
[2021-06-02] MEDS: DOCUSATE SODIUM 100 MG CAPSULE PO SCH ×2 (10:50→21:05)
[2021-06-02] MEDS: CHLORHEXIDINE 0.12% ORAL RINSE 60 ML BOTTLE SWISH/SPIT SCH ×2 (10:50→21:06)
[2021-06-02] MEDS: ASPIRIN EC 81 MG TABLET PO SCH (10:50)
[2021-06-02] MEDS: LOSARTAN 50 MG TABLET PO SCH (10:50)
[2021-06-02] MEDS: amLODIPine 10 MG TABLET PO SCH (10:50)
[2021-06-02] MEDS: GABAPENTIN 100 MG CAPSULE PO SCH (21:05)
[2021-06-03] MEDS: LOSARTAN 50 MG TABLET PO SCH (10:06)
[2021-06-03] MEDS: CLOPIDOGREL 75 MG TABLET PO SCH (10:06)
[2021-06-03] MEDS: CHLORHEXIDINE 0.12% ORAL RINSE 60 ML BOTTLE SWISH/SPIT SCH (10:07)
[2021-06-03] MEDS: POLYETHYLENE GLYCOL POWDER 17 GM PACK PO SCH (10:07)
[2021-06-03] MEDS: ASPIRIN EC 81 MG TABLET PO SCH (10:07)
[2021-06-03] MEDS: METOPROLOL TARTRATE 25 MG TABLET PO SCH (10:07)
[2021-06-03] MEDS: DOCUSATE SODIUM 100 MG CAPSULE PO SCH (10:07)
[2021-06-03] MEDS: amLODIPine 10 MG TABLET PO SCH (10:08)
[2021-06-03 12:26] VITALS: BP 157/57
== END 2021-06-03 14:03 | disposition home or self-care (01) | DRG 270 ==
LOC: N.TELES 13:28

== ENCOUNTER 2021-08-31 08:47 | Inpatient (IN) ==
[2021-08-31 11:34] LABS: Basophils % 0.3 % (0.0-0.8); Eosinophils # 0.2 10*3/uL (0.0-0.87); Eosinophils % 5.2 % (0.00-10.9); Hematocrit 21.8 VOL% (35.7-47.0); Hemoglobin 6.7 GM/DL (12.0-16.0); Immature Granulocytes % 0.9 %; Immature Granulocytes Absolute 0.03 #; Lymphocytes % 29.4 % (21.3-54.2); Mean Corpuscular HGB Conc 30.7 GM/DL (32-36); Mean Corpuscular Volume 103.3 FL (87-102); Mean Platelet Volume 9.7 FL (9.6-12.0); Monocytes % 11.3 % (1.7-12.7); NRBC # 0.03 10*3/uL; Neutrophils % 52.9 % (38.7-73.9); Platelet Count 172 T/CUMM (130-400); Red Blood Count 2.11 MC/CUMM (3.8-5.5); White Blood Count 3.3 T/CUMM (4-12)
[2021-08-31 11:48] LABS: PT Patient Result 11.3 SECS (10.5-12.0); Partial Thromboplastin Time 30.5 SECS (23.8-32.1)
[2021-08-31 11:53] LABS: Bilirubin,Total 1.2 MG/DL (0.20-1.00); Calcium 9.7 MG/DL (8.5-10.1); Potassium 4.8 MMOL/L (3.5-5.1); Total Protein 6.8 G/DL (6.4-8.2)
[2021-08-31] MEDS ORDERED: DOCUSATE SODIUM 100 MG CAPSULE PO PRN (13:49)
[2021-08-31] MEDS ORDERED: GLUCAGON 1 MG VIAL IM PRN (13:49)
[2021-08-31] MEDS ORDERED: ONDANSETRON 4 MG/2 ML VIAL IV PRN (13:49)
[2021-08-31] MEDS ORDERED: DEXTROSE 50% 25 GM/50 ML SYRINGE IV PRN (14:18)
[2021-08-31] MEDS: cloNIDine 0.1 MG TABLET PO STA ×2 (18:20→18:39)
[2021-08-31] MEDS: INSULIN LISPRO 100 UNIT/ML SUBCUT SCH ×3 (18:30→20:26)
[2021-08-31] MEDS: HEPARIN 5,000 UNIT/1 ML VIAL SUBCUT SCH (20:10)
[2021-08-31] MEDS: LOSARTAN 50 MG TABLET PO SCH (20:10)
[2021-09-01] MEDS: GABAPENTIN 100 MG CAPSULE PO SCH ×2 (00:08→20:29)
[2021-09-01 05:11] LABS: Basophils % 0.9 % (0.0-0.8); Eosinophils # 0.3 10*3/uL (0.0-0.87); Hematocrit 22.3 VOL% (35.7-47.0); Hemoglobin 6.8 GM/DL (12.0-16.0); Immature Granulocytes % 1.4 %; Immature Granulocytes Absolute 0.05 #; Lymphocytes % 29.3 % (21.3-54.2); Mean Corpuscular HGB Conc 30.5 GM/DL (32-36); Mean Corpuscular Volume 104.2 FL (87-102); Mean Platelet Volume 9.9 FL (9.6-12.0); Monocytes % 11.1 % (1.7-12.7); NRBC # 0.02 10*3/uL; Neutrophils % 49.3 % (38.7-73.9); Platelet Count 188 T/CUMM (130-400); Red Blood Count 2.14 MC/CUMM (3.8-5.5); Red Cell Distribution Width 17.5 % (9.3-17.3); White Blood Count 3.5 T/CUMM (4-12)
[2021-09-01 05:37] LABS: Calcium 8.6 MG/DL (8.5-10.1); Osmolality,Calculated 278.1 MOS/KG (273-304); Potassium 4.8 MMOL/L (3.5-5.1); Risk Ratio 2.19; VLDL Cholesterol 16.2 MG/DL
[2021-09-01] MEDS: INSULIN LISPRO 100 UNIT/ML SUBCUT SCH ×4 (09:27→20:38)
[2021-09-01] MEDS: HEPARIN 5,000 UNIT/1 ML VIAL SUBCUT SCH ×2 (09:27→20:29)
[2021-09-01] MEDS: LOSARTAN 50 MG TABLET PO SCH ×2 (09:27→20:29)
[2021-09-01] MEDS ORDERED: COLCHICINE 0.6 MG CAPSULE PO ONE (12:53)
[2021-09-01] MEDS: IBUPROFEN 400 MG TABLET PO SCH ×2 (14:42→20:29)
[2021-09-02 05:21] LABS: Basophils % 0.3 % (0.0-0.8); Eosinophils # 0.2 10*3/uL (0.0-0.87); Hematocrit 22.2 VOL% (35.7-47.0); Hemoglobin 6.6 GM/DL (12.0-16.0); Immature Granulocytes % 1.2 %; Immature Granulocytes Absolute 0.04 #; Lymphocytes % 27.6 % (21.3-54.2); Mean Corpuscular HGB Conc 29.7 GM/DL (32-36); Mean Corpuscular Volume 105.7 FL (87-102); Monocytes % 8.7 % (1.7-12.7); Neutrophils % 55.2 % (38.7-73.9); Platelet Count 187 T/CUMM (130-400); Red Cell Distribution Width 17.9 % (9.3-17.3); White Blood Count 3.4 T/CUMM (4-12)
[2021-09-02 05:37] LABS: Calcium 9.9 MG/DL (8.5-10.1); Osmolality,Calculated 277.8 MOS/KG (273-304); Potassium 4.8 MMOL/L (3.5-5.1)
[2021-09-02] MEDS: LOSARTAN 50 MG TABLET PO SCH ×2 (08:44→20:42)
[2021-09-02] MEDS: IBUPROFEN 400 MG TABLET PO SCH ×3 (08:44→20:41)
[2021-09-02] MEDS: HEPARIN 5,000 UNIT/1 ML VIAL SUBCUT SCH ×2 (08:45→20:42)
[2021-09-02] MEDS ORDERED: SODIUM CHLORIDE 0.9% 1,000 ML IV PRN (10:09)
[2021-09-02] MEDS: INSULIN LISPRO 100 UNIT/ML SUBCUT SCH ×4 (10:11→20:42)
[2021-09-02] MEDS: hydrALAZINE 20 MG/1 ML VIAL IV PRN (11:30)
[2021-09-02] MEDS: amLODIPine 10 MG TABLET PO SCH (11:30)
[2021-09-02] MEDS: GABAPENTIN 100 MG CAPSULE PO SCH (20:42)
[2021-09-03] MEDS: hydrALAZINE 20 MG/1 ML VIAL IV PRN (00:19)
[2021-09-03 13:18] LABS: Basophils % 0.6 % (0.0-0.8); Eosinophils # 0.3 10*3/uL (0.0-0.87); Eosinophils % 7.5 % (0.00-10.9); Hematocrit 21.9 VOL% (35.7-47.0); Hemoglobin 6.6 GM/DL (12.0-16.0); Immature Granulocytes % 1.4 %; Immature Granulocytes Absolute 0.05 #; Lymphocytes # 1.1 10*3/uL (1.4-4.0); Lymphocytes % 30.2 % (21.3-54.2); Mean Corpuscular HGB Conc 30.1 GM/DL (32-36); Mean Corpuscular Volume 104.3 FL (87-102); Monocytes % 12.6 % (1.7-12.7); Neutrophils % 47.7 % (38.7-73.9); Platelet Count 171 T/CUMM (130-400); Red Cell Distribution Width 17.7 % (9.3-17.3); White Blood Count 3.5 T/CUMM (4-12)
[2021-09-03 13:57] LABS: Calcium 9.1 MG/DL (8.5-10.1); Osmolality,Calculated 273.4 MOS/KG (273-304); Potassium 5.5 MMOL/L (3.5-5.1)
[2021-09-03] MEDS: IBUPROFEN 400 MG TABLET PO SCH ×3 (16:02→21:10)
[2021-09-03] MEDS: INSULIN LISPRO 100 UNIT/ML SUBCUT SCH ×4 (18:22→22:07)
[2021-09-03] MEDS: amLODIPine 10 MG TABLET PO SCH (19:52)
[2021-09-03] MEDS: LOSARTAN 50 MG TABLET PO SCH ×2 (19:52→21:10)
[2021-09-03] MEDS: HEPARIN 5,000 UNIT/1 ML VIAL SUBCUT SCH ×2 (19:52→21:10)
[2021-09-03] MEDS: GABAPENTIN 100 MG CAPSULE PO SCH (21:10)
[2021-09-04] MEDS: hydrALAZINE 20 MG/1 ML VIAL IV PRN ×2 (04:26→13:01)
[2021-09-04 05:15] LABS: Basophils % 0.5 % (0.0-0.8); Eosinophils # 0.3 10*3/uL (0.0-0.87); Eosinophils % 7.1 % (0.00-10.9); Hematocrit 21.4 VOL% (35.7-47.0); Hemoglobin 6.6 GM/DL (12.0-16.0); Immature Granulocytes % 1.4 %; Immature Granulocytes Absolute 0.05 #; Lymphocytes % 26.4 % (21.3-54.2); Mean Corpuscular HGB Conc 30.8 GM/DL (32-36); Mean Corpuscular Volume 103.4 FL (87-102); Mean Platelet Volume 10.1 FL (9.6-12.0); Monocytes % 10.6 % (1.7-12.7); Platelet Count 176 T/CUMM (130-400); Red Blood Count 2.07 MC/CUMM (3.8-5.5); Red Cell Distribution Width 17.6 % (9.3-17.3); White Blood Count 3.7 T/CUMM (4-12)
[2021-09-04 05:46] LABS: Calcium 8.8 MG/DL (8.5-10.1); Osmolality,Calculated 278.4 MOS/KG (273-304); Potassium 5.7 MMOL/L (3.5-5.1)
[2021-09-04] MEDS ORDERED: minoxidiL 2.5 MG TABLET PO SCH (09:00)
[2021-09-04] MEDS: INSULIN LISPRO 100 UNIT/ML SUBCUT SCH ×3 (10:41→17:28)
[2021-09-04] MEDS: LOSARTAN 50 MG TABLET PO SCH (10:41)
[2021-09-04] MEDS: amLODIPine 10 MG TABLET PO SCH (10:41)
[2021-09-04] MEDS: HEPARIN 5,000 UNIT/1 ML VIAL SUBCUT SCH (10:42)
[2021-09-04] MEDS: IBUPROFEN 400 MG TABLET PO SCH ×2 (10:48→16:20)
[2021-09-04 17:34] VITALS: BP 160/56
== END 2021-09-04 17:40 | disposition home or self-care (01) | DRG 314 ==
LOC: EDUNIT# → N.ED 08:47 → SUATTDRO 13:49 → N.EDINP 13:49 → N.TELES 18:57
PROVIDERS: ADMIT Internal Medicine; ATTEND Internal Medicine

== ENCOUNTER 2021-10-26 05:08 | Inpatient (IN) ==
[2021-10-26] MEDS ORDERED: ONDANSETRON 4 MG/2 ML VIAL IV STA ×2 (05:24→09:28)
[2021-10-26] MEDS ORDERED: SODIUM CHLORIDE 0.9% 1,000 ML IV PRN ×2 (05:38→15:09)
[2021-10-26 05:57] LABS: Basophils % 0.1 % (0.0-0.8); Eosinophils # 0.1 10*3/uL (0.0-0.87); Eosinophils % 1.9 % (0.00-10.9); Immature Granulocytes % 1.8 %; Immature Granulocytes Absolute 0.12 #; Lymphocytes # 2.5 10*3/uL (1.4-4.0); Lymphocytes % 36.7 % (21.3-54.2); Mean Corpuscular HGB Conc 30.3 GM/DL (32-36); Mean Corpuscular Volume 105.3 FL (87-102); Mean Platelet Volume 10.9 FL (9.6-12.0); Monocytes % 7.3 % (1.7-12.7); NRBC # 0.17 10*3/uL; Neutrophils % 52.2 % (38.7-73.9); Platelet Count 176 T/CUMM (130-400); Red Blood Count 1.13 MC/CUMM (3.8-5.5); Red Cell Distribution Width 19.1 % (9.3-17.3); White Blood Count 6.7 T/CUMM (4-12)
[2021-10-26 06:02] LABS: Hematocrit 11.9 VOL% (35.7-47.0); Hemoglobin 3.6 GM/DL (12.0-16.0)
[2021-10-26 06:05] LABS: INR 1.1; PT Patient Result 11.9 SECS (10.5-12.0)
[2021-10-26 06:23] LABS: Alanine Aminotransferase 18 U/L (13-56); Albumin 2.7 G/DL (3.4-5.0); Alkaline Phosphatase 128 U/L (45-117); Aspartate Amino Transferase 25 U/L (0-37); Blood Urea Nitrogen 20 MG/DL (7-18); Calcium 9.4 MG/DL (8.5-10.1); Carbon Dioxide 30 MMOL/L (21-32); Estimated Glom Filtration Rate 12 ML/MIN; Glucose 143 MG/DL (74-106); Potassium 4.3 MMOL/L (3.5-5.1); Sodium 136 MMOL/L (136-145); Total Protein 6.1 G/DL (6.4-8.2)
[2021-10-26] MEDS ORDERED: ALBUTEROL 2.5 MG/3 ML NEB RESP TX PRN (09:09)
[2021-10-26] MEDS ORDERED: ACETAMINOPHEN 325 MG TABLET PO PRN (09:09)
[2021-10-26] MEDS ORDERED: PANTOPRAZOLE 40 MG VIAL IV STA (09:11)
[2021-10-26] MEDS ORDERED: GLUCAGON 1 MG VIAL IM PRN (09:16)
[2021-10-26] MEDS ORDERED: DEXTROSE 10% 25 GM/250 ML BAG IV PRN (09:16)
[2021-10-26 09:36] LABS: Folate 5.8 NG/ML (5.38-24.0)
[2021-10-26] MEDS: MORPHINE 2 MG/1 ML SYRINGE IV PRN ×2 (09:59→20:05)
[2021-10-26] MEDS: INSULIN LISPRO 100 UNIT/ML SUBCUT SCH ×3 (12:30→20:50)
[2021-10-26] MEDS: PANTOPRAZOLE INJ 200 MG in SODIUM CHLORIDE 0.9% 250 ML IV SCH (13:01)
[2021-10-26 14:13] LABS: Basophils % 0.3 % (0.0-0.8); Eosinophils # 0.1 10*3/uL (0.0-0.87); Hematocrit 19.9 VOL% (35.7-47.0); Immature Granulocytes % 2.2 %; Immature Granulocytes Absolute 0.13 #; Lymphocytes # 1.5 10*3/uL (1.4-4.0); Lymphocytes % 24.5 % (21.3-54.2); Mean Corpuscular HGB Conc 33.2 GM/DL (32-36); Mean Corpuscular Volume 94.3 FL (87-102); Mean Platelet Volume 9.6 FL (9.6-12.0); Monocytes % 8.8 % (1.7-12.7); NRBC # 0.12 10*3/uL; Neutrophils % 63.2 % (38.7-73.9); Platelet Count 127 T/CUMM (130-400); Red Blood Count 2.11 MC/CUMM (3.8-5.5); Red Cell Distribution Width 15.7 % (9.3-17.3)
[2021-10-26 14:16] LABS: Hemoglobin 6.6 GM/DL (12.0-16.0)
[2021-10-26] MEDS ORDERED: hydrALAZINE 20 MG/1 ML VIAL IV PRN (15:00)
[2021-10-26] MEDS: cloNIDine 0.1 MG TABLET PO SCH ×2 (15:48→20:05)
[2021-10-26 15:57] LABS: Hematocrit 18.9 VOL% (35.7-47.0)
[2021-10-26 16:00] LABS: Hemoglobin 6.3 GM/DL (12.0-16.0)
[2021-10-26] MEDS: GABAPENTIN 100 MG CAPSULE PO SCH (20:05)
[2021-10-27 02:10] LABS: Basophils % 0.4 % (0.0-0.8); Eosinophils # 0.2 10*3/uL (0.0-0.87); Hematocrit 24.4 VOL% (35.7-47.0); Lymphocytes # 1.5 10*3/uL (1.4-4.0); Lymphocytes % 29.2 % (21.3-54.2); Mean Corpuscular HGB Conc 32.8 GM/DL (32-36); Mean Corpuscular Volume 94.6 FL (87-102); Mean Platelet Volume 9.8 FL (9.6-12.0); NRBC # 0.09 10*3/uL; Neutrophils % 57.4 % (38.7-73.9); Platelet Count 114 T/CUMM (130-400); Red Blood Count 2.58 MC/CUMM (3.8-5.5); Red Cell Distribution Width 16.3 % (9.3-17.3)
[2021-10-27 02:39] LABS: Albumin 2.3 G/DL (3.4-5.0); Bilirubin,Total 0.6 MG/DL (0.20-1.00); Calcium 8.8 MG/DL (8.5-10.1); Osmolality,Calculated 275.2 MOS/KG (273-304); Potassium 4.8 MMOL/L (3.5-5.1); Risk Ratio 2.53; Total Protein 5.2 G/DL (6.4-8.2); VLDL Cholesterol 22.2 MG/DL
[2021-10-27 02:54] LABS: INR 1.1; PT Patient Result 11.8 SECS (10.5-12.0)
[2021-10-27] MEDS ORDERED: SODIUM PHOSPHATE ENEMA 133 ML BOTTLE RECTAL ONE (06:00)
[2021-10-27] MEDS: INSULIN LISPRO 100 UNIT/ML SUBCUT SCH ×4 (07:33→20:34)
[2021-10-27] MEDS ORDERED: SODIUM CHLORIDE 0.9% 1,000 ML IV SCH (08:00)
[2021-10-27] MEDS ORDERED: propofoL 200 MG/20 ML VIAL IV ONE (08:11)
[2021-10-27] MEDS ORDERED: ETOMIDATE 20 MG/10 ML VIAL IV ONE (08:11)
[2021-10-27] MEDS ORDERED: LIDOCAINE 2% 5 ML VIAL ONE (08:11)
[2021-10-27] MEDS: amLODIPine 10 MG TABLET PO SCH (09:39)
[2021-10-27] MEDS: GABAPENTIN 100 MG CAPSULE PO SCH ×2 (09:39→20:31)
[2021-10-27] MEDS: cloNIDine 0.1 MG TABLET PO SCH ×2 (09:39→20:31)
[2021-10-27] MEDS ORDERED: ONDANSETRON 4 MG/2 ML VIAL IV PRN (11:21)
[2021-10-27] MEDS: MORPHINE 2 MG/1 ML SYRINGE IV PRN ×3 (11:33→20:36)
[2021-10-27] MEDS: PANTOPRAZOLE INJ 200 MG in SODIUM CHLORIDE 0.9% 250 ML IV SCH (12:44)
[2021-10-27] MEDS: PANTOPRAZOLE 40 MG TABLET PO SCH (16:00)
[2021-10-27 16:20] LABS: Hematocrit 24.2 VOL% (35.7-47.0); Hemoglobin 7.9 GM/DL (12.0-16.0)
[2021-10-27 21:44] LABS: Hematocrit 25.1 VOL% (35.7-47.0)
[2021-10-28 06:15] LABS: Basophils % 0.3 % (0.0-0.8); Eosinophils # 0.2 10*3/uL (0.0-0.87); Eosinophils % 3.8 % (0.00-10.9); Hematocrit 24.8 VOL% (35.7-47.0); Hemoglobin 7.7 GM/DL (12.0-16.0); Immature Granulocytes % 1.3 %; Immature Granulocytes Absolute 0.08 #; Lymphocytes # 1.3 10*3/uL (1.4-4.0); Mean Corpuscular Volume 98.4 FL (87-102); Mean Platelet Volume 9.6 FL (9.6-12.0); Monocytes % 9.8 % (1.7-12.7); NRBC # 0.04 10*3/uL; Neutrophils % 63.8 % (38.7-73.9); Platelet Count 114 T/CUMM (130-400); Red Blood Count 2.52 MC/CUMM (3.8-5.5)
[2021-10-28] MEDS: MORPHINE 2 MG/1 ML SYRINGE IV PRN ×2 (06:24→20:49)
[2021-10-28 06:32] LABS: Calcium 8.6 MG/DL (8.5-10.1); Osmolality,Calculated 277.7 MOS/KG (273-304); Potassium 4.5 MMOL/L (3.5-5.1)
[2021-10-28] MEDS: INSULIN LISPRO 100 UNIT/ML SUBCUT SCH ×4 (08:43→23:09)
[2021-10-28] MEDS: OLMESARTAN 20 MG TABLET PO SCH (09:56)
[2021-10-28] MEDS: PANTOPRAZOLE 40 MG TABLET PO SCH (09:56)
[2021-10-28] MEDS: cloNIDine 0.1 MG TABLET PO SCH ×2 (09:56→20:48)
[2021-10-28] MEDS: GABAPENTIN 100 MG CAPSULE PO SCH ×2 (09:56→20:48)
[2021-10-28] MEDS: amLODIPine 10 MG TABLET PO SCH (09:56)
[2021-10-28 16:24] LABS: Basophils % 0.5 % (0.0-0.8); Eosinophils # 0.3 10*3/uL (0.0-0.87); Eosinophils % 4.3 % (0.00-10.9); Hematocrit 26.5 VOL% (35.7-47.0); Hemoglobin 8.3 GM/DL (12.0-16.0); Immature Granulocytes % 1.1 %; Immature Granulocytes Absolute 0.07 #; Lymphocytes # 1.8 10*3/uL (1.4-4.0); Lymphocytes % 27.7 % (21.3-54.2); Mean Corpuscular HGB Conc 31.3 GM/DL (32-36); Mean Corpuscular Volume 99.3 FL (87-102); Mean Platelet Volume 9.9 FL (9.6-12.0); Monocytes % 7.1 % (1.7-12.7); NRBC # 0.05 10*3/uL; Neutrophils % 59.3 % (38.7-73.9); Platelet Count 135 T/CUMM (130-400); Red Blood Count 2.67 MC/CUMM (3.8-5.5); Red Cell Distribution Width 18.3 % (9.3-17.3); White Blood Count 6.3 T/CUMM (4-12)
[2021-10-29] MEDS: MORPHINE 2 MG/1 ML SYRINGE IV PRN ×2 (02:24→10:49)
[2021-10-29 05:47] LABS: Basophils % 0.2 % (0.0-0.8); Eosinophils # 0.3 10*3/uL (0.0-0.87); Eosinophils % 5.9 % (0.00-10.9); Hematocrit 23.6 VOL% (35.7-47.0); Hemoglobin 7.3 GM/DL (12.0-16.0); Immature Granulocytes % 1.7 %; Immature Granulocytes Absolute 0.08 #; Lymphocytes # 1.1 10*3/uL (1.4-4.0); Lymphocytes % 23.9 % (21.3-54.2); Mean Corpuscular HGB Conc 30.9 GM/DL (32-36); Mean Corpuscular Volume 98.7 FL (87-102); Mean Platelet Volume 9.7 FL (9.6-12.0); NRBC # 0.03 10*3/uL; Neutrophils % 59.3 % (38.7-73.9); Platelet Count 112 T/CUMM (130-400); Red Blood Count 2.39 MC/CUMM (3.8-5.5); Red Cell Distribution Width 17.7 % (9.3-17.3); White Blood Count 4.8 T/CUMM (4-12)
[2021-10-29] MEDS: INSULIN LISPRO 100 UNIT/ML SUBCUT SCH ×2 (08:36→13:47)
[2021-10-29] MEDS: cloNIDine 0.1 MG TABLET PO SCH (10:17)
[2021-10-29] MEDS: amLODIPine 10 MG TABLET PO SCH (10:17)
[2021-10-29] MEDS: PANTOPRAZOLE 40 MG TABLET PO SCH (10:17)
[2021-10-29] MEDS: OLMESARTAN 20 MG TABLET PO SCH (10:17)
[2021-10-29] MEDS: GABAPENTIN 100 MG CAPSULE PO SCH (10:17)
[2021-10-29 16:26] VITALS: BP 146/52
== END 2021-10-29 16:47 | disposition home or self-care (01) | DRG 919 ==
LOC: EDUNIT# → EDBD → N.ED 05:08 → SUATTDRO 09:09 → N.EDINP 09:09 → N.CC 18:33 → N.5E 10-27 13:23
PROVIDERS: ADMIT Internal Medicine; ATTEND Internal Medicine

== ENCOUNTER 2022-03-15 17:03 | Inpatient (IN) ==
[2022-03-15] MEDS ORDERED: GLUCAGON 1 MG VIAL IM PRN (17:21)
[2022-03-15] MEDS ORDERED: MAGNESIUM SULF RIDER 4 GM/100 ML PREMIX IV PRN (17:21)
[2022-03-15] MEDS ORDERED: ONDANSETRON 4 MG/2 ML VIAL IV PRN (17:21)
[2022-03-15] MEDS ORDERED: PROMETHAZINE 25 MG TABLET PO PRN (17:21)
[2022-03-15] MEDS ORDERED: ACETAMINOPHEN 325 MG TABLET PO PRN (17:21)
[2022-03-15] MEDS ORDERED: guaiFENesin/DM ER 600-30 MG TABLET PO PRN (17:21)
[2022-03-15] MEDS ORDERED: MAGNESIUM SULF RIDER 2 GM/50 ML PREMIX IV PRN (17:21)
[2022-03-15] MEDS ORDERED: DOCUSATE SODIUM 100 MG CAPSULE PO PRN (17:21)
[2022-03-15] MEDS ORDERED: diphenhydrAMINE CAP 25 MG CAPSULE PO PRN (17:21)
[2022-03-15] MEDS ORDERED: POTASSIUM CHLORIDE 20 MEQ TABLET PO PRN (17:21)
[2022-03-15] MEDS ORDERED: ZALEPLON 5 MG CAPSULE PO PRN (17:21)
[2022-03-15] MEDS ORDERED: ALUMINUM/MAGNES/SIMETH MAX STR 30 ML UDCUP PO PRN (17:21)
[2022-03-15] MEDS ORDERED: DEXTROSE 10% 250 ML BAG IV PRN (17:37)
[2022-03-15 18:07] LABS: Basophils % 0.5 % (0.0-0.8); Eosinophils # 0.1 10*3/uL (0.0-0.87); Eosinophils % 3.3 % (0.00-10.9); Hematocrit 23.5 VOL% (35.7-47.0); Hemoglobin 7.2 GM/DL (12.0-16.0); Immature Granulocytes % 0.3 %; Immature Granulocytes Absolute 0.01 #; Lymphocytes # 1.1 10*3/uL (1.4-4.0); Lymphocytes % 30.2 % (21.3-54.2); Mean Corpuscular HGB Conc 30.6 GM/DL (32-36); Mean Corpuscular Volume 104.9 FL (87-102); Mean Platelet Volume 10.1 FL (9.6-12.0); Monocytes # 0.3 10*3/uL (0.11-0.8); Monocytes % 8.2 % (1.7-12.7); Neutrophils % 57.5 % (38.7-73.9); Platelet Count 126 T/CUMM (130-400); Red Blood Count 2.24 MC/CUMM (3.8-5.5); Red Cell Distribution Width 18.6 % (9.3-17.3); White Blood Count 3.6 T/CUMM (4-12)
[2022-03-15 18:25] LABS: Albumin 3.6 G/DL (3.4-5.0); Bilirubin,Total 0.7 MG/DL (0.20-1.00); Calcium 10.1 MG/DL (8.5-10.1); Osmolality,Calculated 277.2 MOS/KG (273-304); Potassium 4.7 MMOL/L (3.5-5.1); Total Protein 7.2 G/DL (6.4-8.2)
[2022-03-15] MEDS: SODIUM CHLORIDE 0.45% 1,000 ML IV SCH (19:18)
[2022-03-16] MEDS: INSULIN LISPRO 100 UNIT/ML SUBCUT SCH ×5 (01:34→20:22)
[2022-03-16 04:25] LABS: Basophils % 0.8 % (0.0-0.8); Eosinophils # 0.2 10*3/uL (0.0-0.87); Hematocrit 25.7 VOL% (35.7-47.0); Immature Granulocytes % 0.8 %; Immature Granulocytes Absolute 0.03 #; Lymphocytes # 1.3 10*3/uL (1.4-4.0); Lymphocytes % 31.8 % (21.3-54.2); Mean Corpuscular HGB Conc 31.1 GM/DL (32-36); Mean Corpuscular Volume 104.5 FL (87-102); Monocytes # 0.3 10*3/uL (0.11-0.8); Monocytes % 7.8 % (1.7-12.7); Neutrophils % 54.8 % (38.7-73.9); Platelet Count 135 T/CUMM (130-400); Red Blood Count 2.46 MC/CUMM (3.8-5.5); Red Cell Distribution Width 18.5 % (9.3-17.3)
[2022-03-16 04:33] LABS: PT Patient Result 11.2 SECS (10.5-12.0)
[2022-03-16 04:43] LABS: Albumin 3.3 G/DL (3.4-5.0); Bilirubin,Total 0.7 MG/DL (0.20-1.00); Calcium 9.3 MG/DL (8.5-10.1); Osmolality,Calculated 275.5 MOS/KG (273-304); Potassium 5.2 MMOL/L (3.5-5.1); Total Protein 6.8 G/DL (6.4-8.2)
[2022-03-16] MEDS ORDERED: FAMOTIDINE 20 MG/2 ML VIAL IV ONE (07:30)
[2022-03-16] MEDS ORDERED: methylPREDNISolone SOD SUC 125 MG/2 ML VIAL IV ONE (07:30)
[2022-03-16] MEDS ORDERED: diphenhydrAMINE 50 MG/1 ML VIAL IV ONE (07:30)
[2022-03-16] MEDS ORDERED: THROMBIN TOPICAL (RECOMBINANT) 5,000 UNIT VIAL TOP ONE (08:27)
[2022-03-16] MEDS ORDERED: HYDROmorphone 1 MG/1 ML SYRINGE IV ONE (10:49)
[2022-03-16] MEDS: PANTOPRAZOLE 40 MG TABLET PO SCH (11:16)
[2022-03-16] MEDS: hydrALAZINE 20 MG/1 ML VIAL IV PRN (13:32)
[2022-03-16] MEDS ORDERED: MIDAZOLAM 2 MG/2 ML VIAL ONE ×2 (15:38→17:43)
[2022-03-16] MEDS ORDERED: fentaNYL 100 MCG/2 ML VIAL ONE ×2 (15:38→17:43)
[2022-03-16] MEDS ORDERED: HEPARIN/NACL 0.9% 2 UNITS/ML 2,000 UNIT/1,000 ML BAG IV ONE (15:41)
[2022-03-16] MEDS ORDERED: NITROGLYCERIN 2% OINT 1 INCH/GM PACK TOP ONE (15:51)
[2022-03-16] MEDS ORDERED: hydrALAZINE 20 MG/1 ML VIAL ONE ×2 (15:52→16:10)
[2022-03-16] MEDS ORDERED: cloNIDine 0.1 MG TABLET ONE (16:14)
[2022-03-16] MEDS ORDERED: niCARdipine 25 MG/10 ML VIAL IV ONE (16:27)
[2022-03-16] MEDS: niCARdipine INJ 25 MG in SODIUM CHLORIDE 0.9% 240 ML IV PRN (16:33)
[2022-03-16] MEDS ORDERED: HYDROmorphone 1 MG/1 ML SYRINGE ONE (16:58)
[2022-03-16] MEDS ORDERED: VANCOMYCIN INJ 1,000 MG in SODIUM CHLORIDE 0.9% 250 ML IV ONE ×2 (17:42→17:45)
[2022-03-16] MEDS ORDERED: LIDOCAINE 2% 5 ML VIAL ONE (17:43)
[2022-03-16] MEDS ORDERED: ROCURONIUM 50 MG/5 ML VIAL IV ONE (17:43)
[2022-03-16] MEDS ORDERED: ONDANSETRON 4 MG/2 ML VIAL ONE (17:43)
[2022-03-16] MEDS ORDERED: propofoL 200 MG/20 ML VIAL IV ONE (17:43)
[2022-03-16] MEDS ORDERED: ETOMIDATE 40 MG/20 ML VIAL IV ONE (17:43)
[2022-03-16] MEDS ORDERED: PHENYLEPHRINE 1 MG/10 ML SYRINGE IV ONE (17:43)
[2022-03-16] MEDS ORDERED: SEVOFLURANE 1 UNIT/15 MINUTE INH ONE (17:43)
[2022-03-16] MEDS ORDERED: LIDOCAINE 1% 5 ML VIAL ONE (17:44)
[2022-03-16] MEDS ORDERED: TISSUE ADHESIVE 1 EACH APPLICATOR TOP ONE (17:44)
[2022-03-16] MEDS ORDERED: HEPARIN 5,000 UNIT/1 ML VIAL ONE (17:45)
[2022-03-16] MEDS ORDERED: SODIUM CHLORIDE 0.9% 100 ML IV ONE (17:51)
[2022-03-16] MEDS ORDERED: PHENYLEPHRINE 10 MG/1 ML VIAL IV ONE (17:52)
[2022-03-16] MEDS: SODIUM CHLORIDE 0.45% 1,000 ML IV SCH (18:08)
[2022-03-16] MEDS ORDERED: GLYCOPYRROLATE 0.4 MG/2 ML VIAL ONE (18:30)
[2022-03-16] MEDS ORDERED: SUGAMMADEX 200 MG/2 ML VIAL IV ONE (18:36)
[2022-03-16] MEDS ORDERED: GLUCAGON 1 MG VIAL IM PRN (18:51)
[2022-03-16] MEDS ORDERED: DEXTROSE 50% 25 GM/50 ML VIAL IV PRN (18:51)
[2022-03-16] MEDS ORDERED: flumazeniL 0.5 MG/5 ML VIAL IV ONE (18:52)
[2022-03-16] MEDS ORDERED: KETOROLAC 30 MG/1 ML VIAL ONE (18:58)
[2022-03-16] MEDS ORDERED: NALOXONE 0.4 MG/ML VIAL ONE (19:06)
[2022-03-17] MEDS: niCARdipine INJ 25 MG in SODIUM CHLORIDE 0.9% 240 ML IV PRN ×2 (00:03→15:21)
[2022-03-17] MEDS: SODIUM CHLORIDE 0.45% 1,000 ML IV SCH (00:06)
[2022-03-17 04:52] LABS: Basophils % 0.5 % (0.0-0.8); Eosinophils # 0.2 10*3/uL (0.0-0.87); Eosinophils % 3.8 % (0.00-10.9); Hematocrit 21.7 VOL% (35.7-47.0); Hemoglobin 6.7 GM/DL (12.0-16.0); Immature Granulocytes % 0.5 %; Immature Granulocytes Absolute 0.02 #; Lymphocytes # 0.9 10*3/uL (1.4-4.0); Lymphocytes % 21.7 % (21.3-54.2); Mean Corpuscular HGB Conc 30.9 GM/DL (32-36); Mean Corpuscular Volume 104.8 FL (87-102); Mean Platelet Volume 9.5 FL (9.6-12.0); Monocytes # 0.4 10*3/uL (0.11-0.8); Monocytes % 9.7 % (1.7-12.7); Neutrophils % 63.8 % (38.7-73.9); Platelet Count 116 T/CUMM (130-400); Red Blood Count 2.07 MC/CUMM (3.8-5.5); Red Cell Distribution Width 18.1 % (9.3-17.3); White Blood Count 3.9 T/CUMM (4-12)
[2022-03-17 05:10] LABS: Calcium 9.1 MG/DL (8.5-10.1); Osmolality,Calculated 270.9 MOS/KG (273-304)
[2022-03-17 05:13] LABS: Potassium 6.5 MMOL/L (3.5-5.1)
[2022-03-17] MEDS ORDERED: SODIUM CHLORIDE 0.9% 1,000 ML IV PRN (05:32)
[2022-03-17] MEDS ORDERED: SODIUM POLYSTYRENE SULFATE 15 GM/60 ML BOTTLE PO ONE (05:32)
[2022-03-17] MEDS: INSULIN LISPRO 100 UNIT/ML SUBCUT SCH ×4 (08:08→20:11)
[2022-03-17] MEDS ORDERED: OLMESARTAN 20 MG TABLET PO SCH (09:00)
[2022-03-17] MEDS ORDERED: amLODIPine 2.5 MG TABLET PO SCH (09:00)
[2022-03-17] MEDS: GABAPENTIN 600 MG TABLET PO SCH ×2 (12:24→20:19)
[2022-03-17] MEDS: PANTOPRAZOLE 40 MG TABLET PO SCH (12:25)
[2022-03-17] MEDS: carvediloL 25 MG TABLET PO SCH ×2 (12:25→20:19)
[2022-03-17] MEDS ORDERED: amLODIPine 5 MG TABLET PO SCH (13:00)
[2022-03-17] MEDS ORDERED: cloNIDine 0.1 MG TABLET PO SCH (14:00)
[2022-03-17] MEDS: cloNIDine 0.1 MG TABLET PO PRN (14:05)
[2022-03-17] MEDS: hydrALAZINE 20 MG/1 ML VIAL IV PRN (18:12)
[2022-03-18 03:23] LABS: Basophils % 0.3 % (0.0-0.8); Eosinophils % 0.5 % (0.00-10.9); Hematocrit 27.6 VOL% (35.7-47.0); Hemoglobin 8.8 GM/DL (12.0-16.0); Immature Granulocytes % 0.7 %; Immature Granulocytes Absolute 0.04 #; Lymphocytes # 0.6 10*3/uL (1.4-4.0); Lymphocytes % 10.5 % (21.3-54.2); Mean Corpuscular HGB Conc 31.9 GM/DL (32-36); Mean Platelet Volume 10.2 FL (9.6-12.0); Monocytes # 0.4 10*3/uL (0.11-0.8); Monocytes % 7.1 % (1.7-12.7); Neutrophils % 80.9 % (38.7-73.9); Platelet Count 101 T/CUMM (130-400); Red Blood Count 2.76 MC/CUMM (3.8-5.5); Red Cell Distribution Width 18.5 % (9.3-17.3); White Blood Count 5.9 T/CUMM (4-12)
[2022-03-18 03:35] LABS: Calcium 9.4 MG/DL (8.5-10.1); Potassium 4.6 MMOL/L (3.5-5.1)
[2022-03-18] MEDS: INSULIN LISPRO 100 UNIT/ML SUBCUT SCH ×4 (08:17→20:14)
[2022-03-18] MEDS: amLODIPine 10 MG TABLET PO SCH (09:37)
[2022-03-18] MEDS: PANTOPRAZOLE 40 MG TABLET PO SCH (09:37)
[2022-03-18] MEDS: carvediloL 25 MG TABLET PO SCH ×2 (09:37→20:21)
[2022-03-18] MEDS: OLMESARTAN 20 MG TABLET PO SCH (09:37)
[2022-03-18] MEDS: GABAPENTIN 600 MG TABLET PO SCH ×2 (09:37→20:21)
[2022-03-19 05:10] LABS: Basophils % 0.4 % (0.0-0.8); Eosinophils # 0.1 10*3/uL (0.0-0.87); Eosinophils % 2.1 % (0.00-10.9); Hematocrit 28.2 VOL% (35.7-47.0); Hemoglobin 8.9 GM/DL (12.0-16.0); Immature Granulocytes % 1.1 %; Immature Granulocytes Absolute 0.06 #; Lymphocytes # 0.9 10*3/uL (1.4-4.0); Lymphocytes % 16.5 % (21.3-54.2); Mean Corpuscular HGB Conc 31.6 GM/DL (32-36); Mean Corpuscular Volume 100.7 FL (87-102); Mean Platelet Volume 9.8 FL (9.6-12.0); Monocytes # 0.4 10*3/uL (0.11-0.8); Monocytes % 7.1 % (1.7-12.7); Neutrophils % 72.8 % (38.7-73.9); Platelet Count 108 T/CUMM (130-400); Red Cell Distribution Width 17.8 % (9.3-17.3); White Blood Count 5.3 T/CUMM (4-12)
[2022-03-19 05:32] LABS: Osmolality,Calculated 279.4 MOS/KG (273-304); Potassium 5.2 MMOL/L (3.5-5.1)
[2022-03-19] MEDS: GABAPENTIN 600 MG TABLET PO SCH ×2 (07:59→21:54)
[2022-03-19] MEDS: PANTOPRAZOLE 40 MG TABLET PO SCH (07:59)
[2022-03-19] MEDS: amLODIPine 10 MG TABLET PO SCH (07:59)
[2022-03-19] MEDS: OLMESARTAN 20 MG TABLET PO SCH (07:59)
[2022-03-19] MEDS: INSULIN LISPRO 100 UNIT/ML SUBCUT SCH ×3 (08:00→21:55)
[2022-03-19] MEDS: carvediloL 25 MG TABLET PO SCH ×2 (10:22→16:34)
[2022-03-20 05:06] LABS: Basophils % 0.4 % (0.0-0.8); Eosinophils # 0.1 10*3/uL (0.0-0.87); Eosinophils % 2.4 % (0.00-10.9); Hematocrit 27.8 VOL% (35.7-47.0); Hemoglobin 8.6 GM/DL (12.0-16.0); Immature Granulocytes % 1.2 %; Immature Granulocytes Absolute 0.06 #; Lymphocytes # 0.7 10*3/uL (1.4-4.0); Lymphocytes % 13.3 % (21.3-54.2); Mean Corpuscular HGB Conc 30.9 GM/DL (32-36); Mean Corpuscular Volume 102.2 FL (87-102); Mean Platelet Volume 10.2 FL (9.6-12.0); Monocytes # 0.5 10*3/uL (0.11-0.8); Monocytes % 9.8 % (1.7-12.7); Neutrophils % 72.9 % (38.7-73.9); Platelet Count 115 T/CUMM (130-400); Red Blood Count 2.72 MC/CUMM (3.8-5.5); Red Cell Distribution Width 17.6 % (9.3-17.3); White Blood Count 5.1 T/CUMM (4-12)
[2022-03-20 05:29] LABS: Albumin 2.9 G/DL (3.4-5.0); Bilirubin,Total 0.6 MG/DL (0.20-1.00); Calcium 9.6 MG/DL (8.5-10.1); Osmolality,Calculated 272.4 MOS/KG (273-304); Potassium 4.3 MMOL/L (3.5-5.1); Total Protein 6.9 G/DL (6.4-8.2)
[2022-03-20 08:23] VITALS: BP 110/46
[2022-03-20] MEDS: carvediloL 25 MG TABLET PO SCH (08:44)
[2022-03-20] MEDS: cloNIDine 0.1 MG TABLET PO PRN (08:44)
[2022-03-20] MEDS: amLODIPine 10 MG TABLET PO SCH (08:45)
[2022-03-20] MEDS: GABAPENTIN 600 MG TABLET PO SCH (08:45)
[2022-03-20] MEDS: INSULIN LISPRO 100 UNIT/ML SUBCUT SCH (08:45)
[2022-03-20] MEDS ORDERED: OLMESARTAN 20 MG TABLET PO SCH (09:00)
[2022-03-20] MEDS: PANTOPRAZOLE 40 MG TABLET PO SCH (10:03)
[2022-03-26] MEDS ORDERED: CHOLECALCIFEROL 1,000 UNIT TABLET PO SCH (09:00)
== END 2022-03-20 12:00 | disposition home or self-care (01) | DRG 907 ==
LOC: N.TELEN → OBSVTOIN 17:16 → N.CC 03-16 16:53 → N.5E 03-19 01:52
PROVIDERS: ADMIT Internal Medicine Cardiovascular Disease; ATTEND Internal Medicine Cardiovascular Disease

== ENCOUNTER 2022-04-01 15:54 | Inpatient (IN) ==
[2022-04-01] MEDS ORDERED: VANCOMYCIN INJ 500 MG in SODIUM CHLORIDE 0.9% 100 ML IV PRN (17:00)
[2022-04-01] MEDS ORDERED: LEVOFLOXACIN INJ 500 MG/100 ML PREMIX IV STA (18:23)
[2022-04-01] MEDS ORDERED: MORPHINE 2 MG/1 ML SYRINGE IV STA (18:45)
[2022-04-01] MEDS ORDERED: MORPHINE 2 MG/1 ML SYRINGE IV PRN (19:06)
[2022-04-01] MEDS ORDERED: ONDANSETRON 4 MG/2 ML VIAL IV PRN (19:06)
[2022-04-01] MEDS ORDERED: DOCUSATE SODIUM 100 MG CAPSULE PO PRN (19:06)
[2022-04-01] MEDS ORDERED: hydrALAZINE 20 MG/1 ML VIAL IV PRN (19:06)
[2022-04-01 19:07] LABS: Basophils % 0.2 % (0.0-0.8); Eosinophils % 0.2 % (0.00-10.9); Hematocrit 25.4 VOL% (35.7-47.0); Hemoglobin 8.2 GM/DL (12.0-16.0); Immature Granulocytes Absolute 0.13 #; Lymphocytes # 0.6 10*3/uL (1.4-4.0); Lymphocytes % 4.7 % (21.3-54.2); Mean Corpuscular HGB Conc 32.3 GM/DL (32-36); Mean Corpuscular Volume 93.7 FL (87-102); Mean Platelet Volume 9.8 FL (9.6-12.0); Monocytes # 0.9 10*3/uL (0.11-0.8); Monocytes % 6.8 % (1.7-12.7); Neutrophils % 87.1 % (38.7-73.9); Platelet Count 278 T/CUMM (130-400); Red Blood Count 2.71 MC/CUMM (3.8-5.5); White Blood Count 12.9 T/CUMM (4-12)
[2022-04-01 19:28] LABS: Band Neutrophils 2 % (0-10); Hypochromia Slight; Lymphocytes 2 % (20-55); Ovalocytes Slight
[2022-04-01 19:29] LABS: Platelet Estimate Increased
[2022-04-01 19:30] LABS: Total Cells Counted 100
[2022-04-01 19:34] LABS: Alanine Aminotransferase < 9 U/L (13-56); Albumin 2.4 G/DL (3.4-5.0); Alkaline Phosphatase 124 U/L (45-117); Aspartate Amino Transferase 7 U/L (0-37); Blood Urea Nitrogen 55 MG/DL (7-18); Calcium 9.7 MG/DL (8.5-10.1); Carbon Dioxide 33 MMOL/L (21-32); Chloride 90 MMOL/L (98-107); Glucose 94 MG/DL (74-106); Osmolality,Calculated 274.8 MOS/KG (273-304); Sodium 130 MMOL/L (136-145); Total Protein 6.3 G/DL (6.4-8.2)
[2022-04-01] MEDS: cefTRIAXone 2,000 MG in SODIUM CHLORIDE 0.9% 100 ML IV SCH (21:37)
[2022-04-01] MEDS ORDERED: VANCOMYCIN INJ 1,500 MG in SODIUM CHLORIDE 0.9% 500 ML IV ONE (22:00)
[2022-04-01] MEDS: carvediloL 25 MG TABLET PO SCH (23:43)
[2022-04-01] MEDS: INSULIN REGULAR 100 UNIT/ML SUBCUT SCH (23:48)
[2022-04-02] MEDS: MORPHINE 2 MG/1 ML SYRINGE IV PRN ×3 (02:46→13:58)
[2022-04-02 05:48] LABS: Basophils % 0.3 % (0.0-0.8); Eosinophils % 0.2 % (0.00-10.9); Hematocrit 26.1 VOL% (35.7-47.0); Hemoglobin 8.3 GM/DL (12.0-16.0); Immature Granulocytes % 0.8 %; Immature Granulocytes Absolute 0.09 #; Lymphocytes # 0.7 10*3/uL (1.4-4.0); Lymphocytes % 6.4 % (21.3-54.2); Mean Corpuscular HGB Conc 31.8 GM/DL (32-36); Mean Corpuscular Volume 94.9 FL (87-102); Mean Platelet Volume 9.7 FL (9.6-12.0); Monocytes # 0.5 10*3/uL (0.11-0.8); Monocytes % 5.1 % (1.7-12.7); Neutrophils % 87.2 % (38.7-73.9); Platelet Count 256 T/CUMM (130-400); Red Blood Count 2.75 MC/CUMM (3.8-5.5); Red Cell Distribution Width 17.1 % (9.3-17.3); White Blood Count 10.7 T/CUMM (4-12)
[2022-04-02 06:31] LABS: Calcium 9.8 MG/DL (8.5-10.1); Osmolality,Calculated 276.8 MOS/KG (273-304)
[2022-04-02] MEDS: carvediloL 25 MG TABLET PO SCH ×2 (08:23→21:04)
[2022-04-02] MEDS: INSULIN REGULAR 100 UNIT/ML SUBCUT SCH ×4 (08:23→21:04)
[2022-04-02] MEDS: ASPIRIN EC 81 MG TABLET PO SCH (08:24)
[2022-04-02] MEDS: amLODIPine 2.5 MG TABLET PO SCH (08:24)
[2022-04-02] MEDS ORDERED: VANCOMYCIN INJ 500 MG in SODIUM CHLORIDE 0.9% 100 ML IV ONE (17:00)
[2022-04-02] MEDS: cefTRIAXone 2,000 MG in SODIUM CHLORIDE 0.9% 100 ML IV SCH (21:04)
[2022-04-03] MEDS: MORPHINE 2 MG/1 ML SYRINGE IV PRN ×2 (00:57→08:34)
[2022-04-03] MEDS: ACETAMINOPHEN 325 MG TABLET PO PRN (03:44)
[2022-04-03] MEDS: INSULIN REGULAR 100 UNIT/ML SUBCUT SCH ×4 (08:33→20:50)
[2022-04-03] MEDS: amLODIPine 2.5 MG TABLET PO SCH (08:34)
[2022-04-03] MEDS: carvediloL 25 MG TABLET PO SCH ×2 (08:34→20:49)
[2022-04-03 09:07] LABS: Basophils % 0.1 % (0.0-0.8); Eosinophils % 0.3 % (0.00-10.9); Hematocrit 25.1 VOL% (35.7-47.0); Hemoglobin 7.9 GM/DL (12.0-16.0); Immature Granulocytes % 1.2 %; Immature Granulocytes Absolute 0.11 #; Lymphocytes # 0.6 10*3/uL (1.4-4.0); Lymphocytes % 6.3 % (21.3-54.2); Mean Corpuscular HGB Conc 31.5 GM/DL (32-36); Mean Corpuscular Volume 97.3 FL (87-102); Mean Platelet Volume 9.6 FL (9.6-12.0); Monocytes # 0.7 10*3/uL (0.11-0.8); Neutrophils % 84.1 % (38.7-73.9); Platelet Count 256 T/CUMM (130-400); Red Blood Count 2.58 MC/CUMM (3.8-5.5); Red Cell Distribution Width 17.1 % (9.3-17.3); White Blood Count 9.2 T/CUMM (4-12)
[2022-04-03 09:22] LABS: Osmolality,Calculated 277.1 MOS/KG (273-304); Potassium 4.6 MMOL/L (3.5-5.1)
[2022-04-03] MEDS: ASPIRIN EC 81 MG TABLET PO SCH (10:49)
[2022-04-03] MEDS ORDERED: propofoL 200 MG/20 ML VIAL IV ONE (13:19)
[2022-04-03] MEDS ORDERED: LIDOCAINE 2% 5 ML VIAL ONE (13:19)
[2022-04-03] MEDS ORDERED: fentaNYL 100 MCG/2 ML VIAL ONE (13:19)
[2022-04-03] MEDS ORDERED: MIDAZOLAM 2 MG/2 ML VIAL ONE (13:20)
[2022-04-03] MEDS ORDERED: ONDANSETRON 4 MG/2 ML VIAL ONE (14:22)
[2022-04-03] MEDS ORDERED: SODIUM CHLORIDE 0.9% 250 ML IV SCH (14:30)
[2022-04-03] MEDS ORDERED: SEVOFLURANE 1 UNIT/15 MINUTE INH ONE (14:47)
[2022-04-03] MEDS ORDERED: ACETAMINOPHEN INJ 1,000 MG/100 ML VIAL IV ONE ×2 (15:32→15:34)
[2022-04-03] MEDS: cefTRIAXone 2,000 MG in SODIUM CHLORIDE 0.9% 100 ML IV SCH (20:50)
[2022-04-04] MEDS: MORPHINE 2 MG/1 ML SYRINGE IV PRN ×3 (05:35→20:40)
[2022-04-04] MEDS: INSULIN REGULAR 100 UNIT/ML SUBCUT SCH ×4 (10:16→20:40)
[2022-04-04] MEDS: amLODIPine 2.5 MG TABLET PO SCH (10:16)
[2022-04-04] MEDS: carvediloL 25 MG TABLET PO SCH ×2 (10:16→20:40)
[2022-04-04] MEDS: ASPIRIN EC 81 MG TABLET PO SCH (10:16)
[2022-04-04] MEDS ORDERED: VANCOMYCIN INJ 500 MG in SODIUM CHLORIDE 0.9% 100 ML IV ONE (17:00)
[2022-04-04] MEDS: ACETAMINOPHEN 325 MG TABLET PO PRN (20:39)
[2022-04-04] MEDS: cefTRIAXone 2,000 MG in SODIUM CHLORIDE 0.9% 100 ML IV SCH (20:46)
[2022-04-05] MEDS: MORPHINE 2 MG/1 ML SYRINGE IV PRN ×2 (03:49→11:23)
[2022-04-05] MEDS: INSULIN REGULAR 100 UNIT/ML SUBCUT SCH ×3 (07:39→16:23)
[2022-04-05] MEDS: carvediloL 25 MG TABLET PO SCH (09:02)
[2022-04-05] MEDS: ASPIRIN EC 81 MG TABLET PO SCH (09:02)
[2022-04-05] MEDS: amLODIPine 2.5 MG TABLET PO SCH (09:03)
[2022-04-05 15:57] VITALS: BP 171/74
== END 2022-04-05 17:16 | disposition home or self-care (01) | DRG 856 ==
LOC: N.ED 15:54 → N.EDINP 19:05 → N.5E 04-02 00:54
PROVIDERS: ADMIT Internal Medicine Geriatric Medicine; ATTEND Internal Medicine Geriatric Medicine